=== PATIENT | female | born 1995 | race Caucasian/White ===

== ENCOUNTER → 2016-03-19 | Outpatient (CLI) | payer OTHER ==
[2016-03-19 19:08] LABS: CH 32.2; CHCM 35.4; HCT 40.2 % (34.0-46.0); HDW 2.45; HGB 13.7 gm/dL (11.4-16.0); MCHC 33.9 g/dL (31.0-37.0); MCV 91.2 fL (80.0-100.0); Mean Platelet Volume 9.6; RBC 4.41 m/uL (3.80-5.40); RDW 12.4 % (11.5-15.5); WBC 13.4 k/uL (4.0-11.0)
[2016-03-19 19:13] LABS: Glucose 85 mg/dL (74-99); Non-African American GFR(MDRD) >60 (>60 ml/min/1.73 sqM)
[2016-03-19 19:45] LABS: Hepatitis B Surface Ag Index 0.06
--- NOTE | 2016-03-20 07:52 | US ---
EXAMINATION TYPE: US OB <= 14 wk fetus DATE OF EXAM: 03/19/2016 6:11 PM COMPARISON: No previous CLINICAL HISTORY: Z36 Confirm Dates. 1 EXAM PERFORMED: Transabdominal (TA) EXAM MEASUREMENTS: GESTATIONAL AGE / DATING Physician Established: Not established yet Dates by LMP: (11 weeks/0 days) EDC: 10/08/2016 Dates by First Scan: No previous Dates by Current Scan for: (10 weeks/4 days) EDC: 10/11/2016 MATERNAL ANATOMY Uterus: 12.9 x 5.6 x 6.2cm Right Ovary: 2.9 x 1.8 x 1.8cm Left Ovary: 2.8 x 1.4 x 1.2cm Post CDS / Adnexa: wnl Presence of free fluid: no Presence of corpus luteal cyst: not seen at this time Presence of subchorionic bleed: no GESTATION / SURVEY CRL: 3.7cm (10 weeks/4 days) Yolk Sac (normal less than 6mm): 5.1mm Heart Rate: 159 bpm Rhythm: Normal IUP: Viable IUP Nuchal Translucency 10-14wks (normal less than 3mm): 1.2mm Date of LMP: 01/02/16 Beta HcG (if available): Not available at time of exam IMPRESSION: Viable single IUP measuring 10 weeks 4 days with a heart rate of 159bpm and an estimate d delivery date of 10/11/2016.
[2016-03-22 06:03] LABS: HIV-1/HIV-2 Ab Screen NONREAC (NON REAC)
== END | disposition home or self-care (01) ==
LOC: RADUSMAIN 17:48
PROVIDERS: ATTEND Obstetrics & Gynecology
DX: Z36 Encounter for antenatal screening of mother (principal); Z34.01 Encounter for supervision of normal first pregnancy, first trimester; O26.811 Pregnancy related exhaustion and fatigue, first trimester; Z3A.10 10 weeks gestation of pregnancy
CPT/HCPCS: 76801; 76813; 82565; 82947; 85027; 86762; 86780; 86850; 86900; 86901; 87340; 87389

== ENCOUNTER → 2016-05-14 | Outpatient (CLI) | payer OTHER ==
--- NOTE | 2016-05-14 17:04 | US ---
EXAMINATION TYPE: US OB anatomy transabd DATE OF EXAM: 05/14/2016 3:30 PM COMPARISON: NONE HISTORY: O36.62X0 Large for dates 2nd Trimester TECHNIQUE: OBTA EXAM MEASUREMENTS: GESTATIONAL AGE / DATING Physician Established: (19 weeks/0 days) EDC: 10/08/2016 Dates by LMP: (19 weeks/0 days) EDC: 10/08/2016 Dates by First Scan: (18 weeks/4 days) EDC: 10/11/2016 Dates by Current Scan for: (18 weeks/6 days) EDC: 10/09/2016 SURVEY IUP: Single PLACENTA: Anterior PREVIA: No previa CHERELLE: 17.0 cm CERVICAL LENGTH (transabdominal: norm > 3.0cm): 3.1 cm CERVICAL LENGTH (transvaginal: norm> 2.5cm): 3.1 cm (Supplemental transvaginal imaging performed to verify cervical length.) BIOMETRY PRESENTATION: Vertex LIE: Oblique BPD: 4.4 cm 19 weeks / 1 days HC: 15.8 cm 18 weeks / 5 days AC: 13.5 cm 19 weeks / 0 days FL: 2.9 cm 19 weeks / 0 days ESTIMATED WEIGHT IN GRAMS: 265 grams ESTIMATED WEIGHT IN LBS/OZS: 0 lbs. 9 oz. WEIGHT PERCENTAGE BASED ON ESTABLISHED DATE: 42 % HC/AC: 1.2 FL/AC: 22 HEART RATE: tech oversight, cardiac motion identified ANATOMY SEEN (within normal limits): * Lateral Vent (< 1 cm) 0.7 cm * Cisterna Magna (< 1.1 cm) 0.4 cm * Nuchal Fold (< 0.6 cm) 0.5 cm * Cerebellum (varies with age) 2.0 cm Choroid Plexus (bilateral) Midline Falx Cavus Septi Pellucidi Four Chamber Heart Outflow tracts: LVOT/RVOT Stomach Situs Nose / Lips Diaphragm Kidneys (bilateral) Bladder Cord Insert Three Vessel Cord Longitudinal Spine Transverse Spine Arms (bilateral) Legs (bilateral) Grwoth congruent with gestational age. Technologist oversight; heart rate not document; cardiac mot ion noted. IMPRESSION: TRIANA FETUS PRESENT IN A VERTEX LIE WITH A GESTATIONAL AGE OF 18 WEEKS 6 DAYS +/- 12 DAYS. ESTIMA FIDENCIO DATE OF CONFINEMENT BASED ON THIS EXAMINATION IS 10/09/2016
== END | disposition home or self-care (01) ==
LOC: RADUSWWP 13:54
PROVIDERS: ATTEND Obstetrics & Gynecology
DX: O36.62X0 Maternal care for excessive fetal growth, second trimester, not applicable or unspecified (principal); Z3A.18 18 weeks gestation of pregnancy
CPT/HCPCS: 76811; 76817

== ENCOUNTER → 2016-07-29 | Outpatient (CLI) | payer OTHER ==
[2016-07-29 17:52] LABS: CH 32.8; CHCM 34.3; HCT 33.7 % (34.0-46.0); HGB 11.1 gm/dL (11.4-16.0); MCH 31.8 pg (25.0-35.0); MCV 96.3 fL (80.0-100.0); Mean Platelet Volume 9.8; RBC 3.49 m/uL (3.80-5.40); RDW 13.8 % (11.5-15.5); WBC 9.8 k/uL (4.0-11.0)
== END | disposition home or self-care (01) ==
LOC: LABWHC1 15:29
PROVIDERS: ATTEND Obstetrics & Gynecology
DX: Z34.02 Encounter for supervision of normal first pregnancy, second trimester (principal); Z3A.00 Weeks of gestation of pregnancy not specified
CPT/HCPCS: 36415; 82950; 85027

== ENCOUNTER → 2016-08-10 | Outpatient (CLI) | payer OTHER | END | disposition home or self-care (01) | LOC: LABWHC1 08:15 | PROVIDERS: ATTEND Obstetrics & Gynecology | DX: O24.419 Gestational diabetes mellitus in pregnancy, unspecified control (principal); Z3A.00 Weeks of gestation of pregnancy not specified | CPT/HCPCS: 36415; 82951; 82952 ==

== ENCOUNTER → 2016-08-26 | Outpatient (CLI) | payer OTHER ==
[2016-08-26 11:55] LABS: Glucose 3 Hour, Gest 120 mg/dL
== END | disposition home or self-care (01) ==
LOC: LABWHC1 08:06
PROVIDERS: ATTEND Obstetrics & Gynecology
DX: O24.419 Gestational diabetes mellitus in pregnancy, unspecified control (principal); Z3A.00 Weeks of gestation of pregnancy not specified
CPT/HCPCS: 36415; 82951; 82952

== ENCOUNTER 2016-09-04 23:15 | Inpatient (IN) | payer OTHER ==
[2016-09-05] MEDS ORDERED: LACTATED RINGERS 1,000 ML IV SCH (00:15)
[2016-09-05] MEDS ORDERED: LIDOCAINE 1% (PF) 10 MG/ML (30 ML SDV) SQ PRN (00:32)
[2016-09-05] MEDS ORDERED: OXYTOCIN 10 UNIT/ML 1 ML VIAL IM PRN (00:32)
[2016-09-05] MEDS ORDERED: CARBOPROST TROMETHAMINE 250 MCG/ML 1 ML AMP IM PRN (00:32)
[2016-09-05] MEDS ORDERED: METHYLERGONOVINE 0.2 MG/ML 1 ML AMP IM PRN (00:32)
[2016-09-05] MEDS ORDERED: AMPICILLIN 2,000 MG in SODIUM CHLORIDE 0.9% 100 ML IVPB STA (00:32)
[2016-09-05] MEDS ORDERED: TERBUTALINE 1 MG/ML VIAL SQ PRN (00:32)
[2016-09-05 00:57] LABS: Basophils % (A) 0 %; CH 33.2; CHCM 35.8; Eosinophils # (A) 0.1 k/uL (0-0.7); Eosinophils % (A) 1 %; HCT 32.7 % (34.0-46.0); HDW 2.89; HGB 11.5 gm/dL (11.4-16.0); Large Platelets Flag Slight; Luc # (Auto) 0.23; Luc % (Auto) 1; Lymphocytes # (A) 3.1 k/uL (1.0-4.8); Lymphocytes % (A) 19 %; MCH 32.9 pg (25.0-35.0); MCHC 35.2 g/dL (31.0-37.0); MCV 93.2 fL (80.0-100.0); Mean Platelet Volume 11.5; Monocytes # (A) 0.7 k/uL (0-1.0); Monocytes % (A) 4 %; Neutrophils # (A) 12.4 k/uL (1.3-7.7); Neutrophils % (A) 75 %; RBC 3.51 m/uL (3.80-5.40); RDW 14.5 % (11.5-15.5); WBC 16.7 k/uL (4.0-11.0); WBC (Perox) 16.32
[2016-09-05 01:21] LABS: Manual Review Performed
[2016-09-05] MEDS: LACTATED RINGERS 1,000 ML IV SCH ×3 (01:39→09:54)
--- NOTE | 2016-09-05 01:41 | P.HPOB ---
History of Present Illness H&P Date: 09/05/16 Chief Complaint: Contractions This patient is a pleasant 20-year-old 1 para 0 female estimated date of confinement 10/08/2016 estimated gestational age 35 weeks and 1 day who presents to labor and delivery with complaints of regular painful contractions. Patient's care has been complicated by low maternal weight gain and she did have a positive chlamydia in the first trimester with a negative test of cure. Patient's cervix on Tuesday was closed and thick and is now 2-3 cm dilated 50% effaced consistent with labor. Review of Systems Constitutional: Denies chills, Denies fever Ears, nose, mouth and throat: Denies headache, Denies sore throat Cardiovascular: Denies chest pain, Denies shortness of breath Respiratory: Denies cough Gastrointestinal: Reports heartburn Genitourinary: Reports Menstruation: Reports amenorrhea Musculoskeletal: Denies myalgias Integumentary: Denies pruritus, Denies rash Past Medical History Past Medical History: Asthma History of Any Multi-Drug Resistant Organisms: None Reported Past Surgical History: Adenoidectomy, Tonsillectomy Past Anesthesia/Blood Transfusion Reactions: No Reported Reaction Past Psychological History: Depression Smoking Status: Current every day smoker Past Alcohol Use History: None Reported Past Drug Use History: None Reported Medications and Allergies Home Medications Medication Instructions Recorded Confirmed Type Pnv No.95/Ferrous Fum/Folic AC 1 tab PO DAILY 09/04/16 09/04/16 History [ Multivitamin Tablet] Allergies Allergy/AdvReac Type Severity Reaction Status Date / Time No Known Allergies Allergy Verified 09/04/16 23:22 Exam - Vital Signs Vital signs: Intake and Output 09/04/16 09/04/16 09/05/16 14:59 22:59 06:59 Other: Weight 47.627 kg Patient Weight 09/05/16 06:59 Weight 47.627 kg - OBG Physical Exam Abdomen: bowel sounds normal, no diffuse tenderness, no bruit present, no guarding noted, no hepatomegaly, no splenomegaly, no mass Vulva: both: normal Vagina: normal moisture, no discharge Cervix: Cervix is 2-3 cm dilated 50% effaced -1 station. Uterus: enlarged (Fundal height is 34 cm) Results Patient's blood type is A positive, rubella immune, RPR is nonreactive, hepatitis B is negative, HIV is negative, group B strep is pending. She had a positive Chlamydia with a negative test of cure. Call was 163 with a normal three-hour gtt. Ultrasounds have been normal. Result Diagrams: 09/05/16 00:18 Abnormal Lab Results - Last 24 Hours (Table) 09/05/16 Range/Units 00:18 WBC 16.7 H (4.0-11.0) k/uL RBC 3.51 L (3.80-5.40) m/uL Hct 32.7 L (34.0-46.0) % Plt Count 134 L (150-450) k/uL Neutrophils # 12.4 H (1.3-7.7) k/uL Assessment and Plan (1) labor in third trimester Narrative/Plan: This is a pleasant 20-year-old 1 para 0 female estimated gestational age 35 and one sevenths weeks gestation in active labor. Patient is unknown group B strep status and therefore will be given IV antibiotics. Anticipate vaginal delivery. Status: Acute
--- NOTE | 2016-09-05 01:43 | P.MSEPDOC ---
Presenting Problems - Arrival Data Date of Arrival on Unit: 09/04/16 Time of Arrival on Unit: 23:15 Mode of Transport: Portable - Complaint OB-Reason for Admission/Chief Complaint: Possible Onset of Labor, Pain Comment: pt presents to tr with c/o "constant pain" since this evening. denies any bleeding or leaking. Medical History - Information : 1 Para: 0 Term: 0 : 0 Abortions: Spontaneous or Elective: 0 Number of Living Children: 0 - Gestational Age Expected Date of Delivery: 10/08/16 Gestational Age by ULISES (wks/days): 35 Weeks and 2 Days - History Complications: Smoker Medical Screen Scoring (Pre) - Cervical Exam Dilation: 1-3 cm = 1 Membranes: Intact - Uterine Contractions Frequency: < 36 weeks = 6 Duration: > 40 seconds = 2 Intensity: N/A - Maternal Vital Signs Maternal Temperature: N/A Maternal Blood Pressure: N/A Signs of Preeclampsia: N/A Maternal Respirations: N/A - Maternal Trauma Maternal Trauma: N/A - Assessment Baseline FHR: 130 Heart Rate - NICHD Category: Category II (Indeterminate) = 3 NST: Non-reactive = 3 - Total Score Total Score (Pre): 15 - Level of Risk Level of Risk: High (10+) Physician Notification (Pre) - Physician Notified Physician Notified Date: 09/04/16 Physician Notified Time: 23:32 Physician/Practitioner Notifed:: Dr Baugh - Notification Comment Comment: order to recheck cervix after 1 hour, orally hydrate. if pts cervix is unchanged, fhts are reactive and pain is more controlled, pt may be d/c'd home. otherwise call with any needs or changes. Physician Notification (Post) - Physician Notified Physician Notified Date: 09/05/16 Physician Notified Time: 00:30 Physician/Practitioner Notified:: Dr Baugh - Notification Comment Comment: admit, continue with u/s, he'll be in shortly Disposition - Disposition OB Disposition: Admit I agree with the RN Medical Screening Exam: Yes Risk & Benefit of care provided described in d/c instruction: Yes Diagnosis: LABOR WITH DELIVERY, UNSP TRIMESTER, FETUS 1
[2016-09-05] MEDS ORDERED: BUPIVACAINE (PF) 0.25% 30 ML VIAL ONE (01:45)
[2016-09-05] MEDS ORDERED: SODIUM CHLORIDE 0.9% 100 ML BAG ONE (01:45)
[2016-09-05] MEDS ORDERED: fentaNYL (PF) 50 MCG/ML 5 ML AMP ONE (01:45)
--- NOTE | 2016-09-05 02:04 | US ---
EXAM: US After First Trimester, Transabdominal CLINICAL HISTORY: Reason: rule out abruption TECHNIQUE: Real-time transabdominal obstetrical ultrasound of the maternal pelvis and a second or third trimester with image documentation. COMPARISON: 05/14/16. FINDINGS: Fetus: Single IUP Heart rate: 132 bpm Presentation: Vertex, longitudinal lie. Placenta: Anterior placenta with no evidence of previa or abruption. Amniotic fluid: Unremarkable. 14.9-cm. Anatomy: Intracranial/face anatomy not seen. Spinal anatomy not seen. Abdominal anatomy not seen. Extremities not seen. Four-chamber heart not seen. Umbilical cord not seen. BIOMETRICS Gestational age by US: 33 weeks and 6 days EFW: 2358 grams BPD: 8.5 cm 34 weeks / 3 days HC: 31.1 cm 34 weeks / 5 days AC: 30.2 cm 34 weeks / 1 days FL: 6.6 cm 33 weeks / 5 days HC/AC: 1.03 0.95-1.11 FL/AC: 21.71 20.00-24.00 MATERNAL: Uterus: Unremarkable. No myometrial mass. Cervix: Approximately 3.2 cm and closed Free fluid: No free fluid. IMPRESSION: No acute findings. Single live IUP of 33 weeks and 6 days. Anterior placenta with no evidence of previa or abruption. Size consistent with dates and prior study.
[2016-09-05] MEDS ORDERED: BUPIVACAINE (PF) 0.25% 25 ML, fentaNYL (PF) 200 MCG in SODIUM CHLORIDE 0.9% 71 ML EPIDURAL ONE (02:08)
[2016-09-05] MEDS: AMPICILLIN 1,000 MG in SODIUM CHLORIDE 0.9% 50 ML IVPB SCH ×2 (04:55→11:09)
[2016-09-05] MEDS ORDERED: OXYTOCIN 20 UNITS/1000 ML NS 1,000 ML IV SCH ×2 (06:15→09:30)
[2016-09-05] MEDS ORDERED: BISACODYL 10 MG SUPP RECTAL PRN (09:28)
[2016-09-05] MEDS ORDERED: SIMETHICONE 80 MG CHEWABLE PO PRN (09:28)
[2016-09-05] MEDS ORDERED: diphenhydrAMINE 25 MG CAP PO PRN (09:28)
[2016-09-05] MEDS ORDERED: WITCH HAZEL 1 EACH MED..PAD TOPICAL PRN (09:28)
[2016-09-05] MEDS ORDERED: diphenhydrAMINE 50 MG/ML 1 ML VIAL IVP PRN (09:28)
[2016-09-05] MEDS ORDERED: ACETAMINOPHEN TAB 325 MG TAB PO PRN (09:28)
[2016-09-05] MEDS ORDERED: BENZOCAINE/MENTHOL SPRAY 1 GM/SPRAY AEROSOL TOPICAL PRN (09:28)
[2016-09-05] MEDS ORDERED: ZOLPIDEM 5 MG TAB PO PRN (09:28)
[2016-09-05] MEDS ORDERED: LANOLIN CREAM 5 GM TUBE TOPICAL PRN (09:28)
[2016-09-05] MEDS ORDERED: HYDROCORTISONE 2.5% RECTAL CREAM 30 GM TUBE RECTAL PRN (09:28)
--- NOTE | 2016-09-05 09:33 | P.PROBDLV ---
Vaginal Delivery Note - . Vaginal Delivery Note: Normal vaginal delivery viable male infant Apgars 8 and 9 delivery time was 0909 hrs. Please see dictated H&P for intimate details of this patient's admission. Brief summary this is a pleasant 20-year-old 1 para 0 female 35 and one sevenths weeks gestation admitted to labor and delivery with regular painful contractions. Patient was having contractions every 1-2 minutes and abdominal discomfort I did order a ultrasound which showed no evidence of an abruption and normal amniotic fluid index. Patient was having some variable decelerations therefore was admitted and found to be in early labor. Patient has artificial rupture membranes for clear fluid. Due to unknown group B strep status she was started on IV antibiotics. Patient received an epidural for pain control. When she was approximately 4 cm dilated she was noted to have some dark bloody fluid. heart tones were reassuring at this time in labor did progress quickly at this time as well. Patient not to complete and pushes for approximately 18 minutes. Posterior perineum was infiltrated 1% lidocaine and a midline episiotomy is made. We then have controlled delivery of the infant's head over the perineum. Bloody fluid is noted at this time as well. Mouth and nares are bulb suctioned there is no evidence of nuchal cord. With gentle downward traction we then have delivery the anterior and posterior shoulder and rest this 's body. This is a vigorous viable male Apgars are 8 and 9 delivery time was 0909 hrs. Infant has spontaneous respirations and good cry. After delivery of the infant the umbilical cords doubly clamped and cut infant is late on the mother's abdomen. Placenta is then spontaneously delivered intact and there is approximately 45 cm dark red clot and appears to be with a marginal placental abruption. The rest of the placenta appears normal. Estimated blood loss is 100 mL. Inspection of perineum shows a second-degree laceration was repaired with 3-0 Vicryl usual fashion good reapproximation is noted. All counts are correct 3. There are no complications. will be watched and then taken to special care due to gestational age. Mother is stable in the delivery room.
[2016-09-05] MEDS: IBUPROFEN 600 MG TAB PO PRN ×2 (11:52→22:28)
[2016-09-05] MEDS: SENNOSIDES-DOCUSATE SODIUM 1 EACH TAB PO SCH (19:48)
[2016-09-05] MEDS: Acetaminophen-Codeine 300-30mg TAB PO PRN (19:53)
[2016-09-05 19:55] VITALS: RESP 16
--- NOTE | 2016-09-06 06:23 | P.PNOBGVD ---
Subjective - Subjective Patient reports: Reports appetite normal, Reports voiding normally, Reports pain well controlled, Reports ambulating normally : doing well Objective - Latest Vital Signs Latest vital signs: Vital Signs Temp Pulse Resp BP Pulse Ox 09/05/16 23:49 98.4 F 58 L 16 97/53 98 09/05/16 19:54 97.9 F 81 16 94/47 97 09/05/16 16:00 98.4 F 69 18 93/53 98 09/05/16 11:51 98.7 F 72 16 101/51 09/05/16 11:25 72 16 101/51 09/05/16 10:55 99.2 F 78 14 109/59 09/05/16 10:25 98.2 F 74 14 108/57 09/05/16 10:10 81 14 120/63 09/05/16 09:55 97.7 F 88 16 114/56 09/05/16 09:40 85 16 110/62 09/05/16 09:25 97.7 F 71 16 121/62 Intake and Output 09/05/16 09/05/16 09/06/16 14:59 22:59 06:59 Intake Total 59.15 500 Output Total 900 Balance -840.85 500 Intake: Intake, IV Titration 59.15 Amount Ampicillin 1,000 mg In 50 Sodium Chloride 0.9% 50 ml @ 100 mls/hr IVPB Q4H [place] Rx#:[id number] Oxytocin 20 Units/1000 ml 9.15 Ns 1,000 ml @ 1 MILLIUNIT/MIN 3 mls/hr IV .Q24H [place] Rx#:[id number] Oral 500 Output: Urine 800 Emesis 100 Other: # Voids 1 - Exam Lungs: bilateral: normal Chest: Normal S1, Normal S2 Extremities: Present: normal Abdomen: Present: normal appearance, soft Uterus: Present: normal, firm Assessment and Plan (1) labor in third trimester Narrative/Plan: day #1. Patient is resting without new complaints. Vital signs are stable and she is afebrile. Uterus is firm nontender she's having normal lochia. My impression is that this is a normal course. Plan is to continue routine care and discharge home tomorrow. Current Visit: Yes Status: Acute Code(s): O60.03 - LABOR WITHOUT DELIVERY, THIRD TRIMESTER SNOMED Code(s): 9842401
[2016-09-06] MEDS: SENNOSIDES-DOCUSATE SODIUM 1 EACH TAB PO SCH ×3 (08:34→20:46)
[2016-09-06] MEDS: Acetaminophen-Codeine 300-30mg TAB PO PRN ×2 (08:35→20:43)
[2016-09-06] MEDS: IBUPROFEN 600 MG TAB PO PRN ×2 (14:34→23:41)
--- NOTE | 2016-09-07 06:19 | P.PNOBGVD ---
Subjective - Subjective Patient reports: Reports appetite normal, Reports voiding normally, Reports pain well controlled, Reports ambulating normally : doing well Objective - Latest Vital Signs Latest vital signs: Vital Signs Temp Pulse Resp BP Pulse Ox 09/06/16 23:47 98 F 55 L 16 108/60 99 09/06/16 16:00 97.9 F 71 16 102/56 09/06/16 09:03 98.1 F 81 16 107/61 Intake and Output 09/06/16 09/06/16 09/07/16 14:59 22:59 06:59 Other: # Voids 2 - Exam Lungs: bilateral: normal Chest: Normal S1, Normal S2 Extremities: Present: normal Abdomen: Present: normal appearance, soft Uterus: Present: normal, firm Assessment and Plan (1) labor in third trimester Narrative/Plan: day #2. Patient is resting without complaints. Vital signs are stable and she is afebrile. Uterus is firm nontender she's having normal lochia. My impression is normal course. Plan is to continue routine care discharge home today. Current Visit: Yes Status: Acute Code(s): O60.03 - LABOR WITHOUT DELIVERY, THIRD TRIMESTER SNOMED Code(s): 0581488
--- NOTE | 2016-09-07 06:20 | P.DS ---
Providers Date of admission: 09/05/16 00:32 Expected date of discharge: 09/07/16 Attending physician: Darryn Baugh Primary care physician: Darryn Baugh - Discharge Diagnosis(es) (1) labor in third trimester Current Visit: Yes Status: Acute Hospital Course: Please see dictated H&P for intimate details of this patient's admission. Brief summary this pleasant 20-year-old 1 para 0 female 35 and one sevenths weeks gestation admitted to labor and delivery with active labor. Patient went on to have a vaginal delivery viable male infant. Of note she did have a partial abruption noted at the time of delivery. day #2 patient's felt be stable for discharge home follow up with me in 6 weeks. Procedures: Normal spontaneous vaginal delivery Patient Condition at Discharge: Good Plan - Discharge Summary New Discharge Prescriptions: New Acetaminophen-Codeine 300-30mg [Tylenol w/codeine #3] 1 - 2 each PO Q4HR PRN #30 tab PRN Reason: Mild Pain exceeding Tylenol Ibuprofen [Motrin] 600 mg PO Q6HR PRN #40 tab PRN Reason: Mild Pain Or Fever >= 100.5 No Action Pnv No.95/Ferrous Fum/Folic AC [ Multivitamin Tablet] 1 tab PO DAILY Discharge Medication List Pnv No.95/Ferrous Fum/Folic AC [ Multivitamin Tablet] 1 tab PO DAILY [History] Acetaminophen-Codeine 300-30mg [Tylenol w/codeine #3] 1 - 2 each PO Q4HR PRN # 30 tab 09/07/16 [Rx] Ibuprofen [Motrin] 600 mg PO Q6HR PRN #40 tab 09/07/16 [Rx] Follow up Appointment(s)/Referral(s): Darryn Baugh MD [Primary Care Provider] - 10/21/16 9:45 am Patient Instructions/Handouts: Vaginal Delivery (DC) Activity/Diet/Wound Care/Special Instructions: No intercourse or anything per vagina for 6 weeks. Please call if any fever, chills, excessive vaginal bleeding, and/or abdominal pain. Discharge Disposition: HOME SELF-CARE
[2016-09-07] MEDS: IBUPROFEN 600 MG TAB PO PRN (08:20)
[2016-09-07] MEDS: SENNOSIDES-DOCUSATE SODIUM 1 EACH TAB PO SCH (08:21)
[2016-09-07 09:23] VITALS: PULSE 62
[2016-09-07] MEDS: Acetaminophen-Codeine 300-30mg TAB PO PRN (13:54)
[2016-09-07 18:00] VITALS: BP 116/62; TEMP 98.4
== END 2016-09-07 18:30 | disposition home or self-care (01) | DRG 774 ==
LOC: FBPOP 23:15 → 4FBP 09-05 00:32
PROVIDERS: ADMIT Obstetrics & Gynecology; ATTEND Obstetrics & Gynecology
PROC: 10E0XZZ Delivery of Products of Conception, External Approach (ICD-10-PCS; principal; 2016-09-05)
PROC: 0KQM0ZZ Repair Perineum Muscle, Open Approach (ICD-10-PCS; 2016-09-05)
PROC: 0W8NXZZ Division of Female Perineum, External Approach (ICD-10-PCS; 2016-09-05)
DX: O60.14X0 Preterm labor third trimester with preterm delivery third trimester, not applicable or unspecified (principal); O45.93 Premature separation of placenta, unspecified, third trimester; Z37.0 Single live birth; O70.1 Second degree perineal laceration during delivery; O99.334 Smoking (tobacco) complicating childbirth; O99.344 Other mental disorders complicating childbirth; O99.52 Diseases of the respiratory system complicating childbirth; F32.9 Major depressive disorder, single episode, unspecified; J45.909 Unspecified asthma, uncomplicated; O76 Abnormality in fetal heart rate and rhythm complicating labor and delivery; Z3A.35 35 weeks gestation of pregnancy
CPT/HCPCS: 59025; 76805; 85025; 88307; 96360; 99213

== ENCOUNTER 2018-07-07 15:40 | Emergency (ER) | payer OTHER ==
[2018-07-07 15:50] VITALS: TEMP 97.8
[2018-07-07] MEDS ORDERED: SODIUM CHLORIDE 0.9% 1,000 ML IV ONE (16:46)
[2018-07-07] MEDS ORDERED: SODIUM CHLORIDE 0.9% 1,000 ML IV SCH (17:00)
--- NOTE | 2018-07-07 17:31 | ED ---
Abdominal Pain HPI - General Chief Complaint: Abdominal Pain Stated Complaint: 15 weks preg, vomiting Time Seen by Provider: 07/07/18 16:20 Source: patient, RN notes reviewed, old records reviewed Mode of arrival: ambulatory Limitations: no limitations - History of Present Illness Initial Comments: Patient 22 year old female with complaints of nausea and vomitig or one week. She states she is currently 15 weeks . Denies any vaginal bleeding or discharge. She denies any diarrhea. Patient states she's had some upper abdominal pain associated with this. She denies any associated chest pain. Denies any vaginal bleeding or discharge or painful urination.Patient denies any recent fever, chills, shortness of breath, chest pain, back pain, abdominal pain, , numbness or tingling, dysuria or hematuria, constipation or diarrhea, headaches or visual changes, or any other current symptoms - Related Data Home Medications Medication Instructions Recorded Confirmed Pnv No.95/Ferrous Fum/Folic AC 1 tab PO DAILY 09/04/16 09/04/16 [ Multivitamin Tablet] Previous Rx's Medication Instructions Recorded Acetaminophen-Codeine 300-30mg 1 - 2 each PO Q4HR PRN #30 tab 09/07/16 [Tylenol w/codeine #3] Ibuprofen [Motrin] 600 mg PO Q6HR PRN #40 tab 09/07/16 Metoclopramide [Reglan] 5 mg PO ACHS #23 tab 07/07/18 Allergies Allergy/AdvReac Type Severity Reaction Status Date / Time No Known Allergies Allergy Verified 07/07/18 15:50 Review of Systems ROS Statement: Those systems with pertinent positive or pertinent negative responses have been documented in the HPI. ROS Other: All systems not noted in ROS Statement are negative. Past Medical History Past Medical History: Asthma History of Any Multi-Drug Resistant Organisms: None Reported Past Surgical History: Adenoidectomy, Tonsillectomy Past Anesthesia/Blood Transfusion Reactions: No Reported Reaction Past Psychological History: Depression Smoking Status: Current every day smoker Past Alcohol Use History: None Reported Past Drug Use History: None Reported - Past Family History Mother Family Medical History: No Reported History General Exam - General Exam Comments Initial Comments: 22-year-old female. Alert and oriented. No distress. Limitations: no limitations General appearance: alert, in no apparent distress Head exam: Present: atraumatic, normocephalic, normal inspection Eye exam: Present: normal appearance, PERRL, EOMI. Absent: scleral icterus, conjunctival injection, periorbital swelling ENT exam: Present: normal exam, mucous membranes moist Neck exam: Present: normal inspection. Absent: tenderness, meningismus, lymphadenopathy Respiratory exam: Present: normal lung sounds bilaterally. Absent: respiratory distress, wheezes, rales, rhonchi, stridor Cardiovascular Exam: Present: regular rate, normal rhythm, normal heart sounds. Absent: systolic murmur, diastolic murmur, rubs, gallop, clicks GI/Abdominal exam: Present: soft, normal bowel sounds. Absent: distended, tenderness, guarding, rebound, rigid Extremities exam: Present: normal inspection, full ROM, normal capillary refill. Absent: tenderness, pedal edema, joint swelling, calf tenderness Back exam: Present: normal inspection Neurological exam: Present: alert, oriented X3, CN II-XII intact Psychiatric exam: Present: normal affect, normal mood Skin exam: Present: warm, dry, intact, normal color. Absent: rash Course Vital Signs 07/07/18 07/07/18 07/07/18 15:48 18:15 20:00 Temperature 97.8 F Pulse Rate 107 H 75 74 Respiratory 18 16 18 Rate Blood Pressure 101/65 103/56 97/57 O2 Sat by Pulse 98 98 99 Oximetry Medical Decision Making - Medical Decision Making 22-year-old female, G2, P2 1. 15 weeks , presents today with nausea and vomiting for the past week. She admits to some upper abdominal pain associated with this. She has no significant tenderness on exam. Denies any vaginal bleeding or discharge. heart tones were also stated 1 40 bpm. Patient has been given IV fluids. Patient is dehydrated with 3+ ketones. She was given 2 L bolus. Patient advised likely gastroenteritis. Mother relates that she's also on her menstrual stress due to family situations. The could be causing her stomach pain and anxiety. Patient will be discharged at this time with p rescription for Reglan and advised to follow-up with her PCP. Discussed frequent small meals and increasing hydration status. - Lab Data Result diagrams: 07/07/18 18:00 07/07/18 18:00 Lab Results 07/07/18 07/07/18 07/07/18 Range/Units 18:00 18:00 18:00 WBC 12.2 H (3.8-10.6) k/uL RBC 4.02 (3.80-5.40) m/uL Hgb 12.7 (11.4-16.0) gm/dL Hct 36.5 (34.0-46.0) % MCV 90.8 (80.0-100.0) fL MCH 31.5 (25.0-35.0) pg MCHC 34.7 (31.0-37.0) g/dL RDW 13.8 (11.5-15.5) % Plt Count 180 (150-450) k/uL Neutrophils % 73 % Lymphocytes % 21 % Monocytes % 3 % Eosinophils % 3 % Basophils % 0 % Neutrophils # 8.9 H (1.3-7.7) k/uL Lymphocytes # 2.5 (1.0-4.8) k/uL Monocytes # 0.4 (0-1.0) k/uL Eosinophils # 0.3 (0-0.7) k/uL Basophils # 0.0 (0-0.2) k/uL Sodium 135 L (137-145) mmol/L Potassium 4.0 (3.5-5.1) mmol/L Chloride 106 (98-107) mmol/L Carbon Dioxide 19 L (22-30) mmol/L Anion Gap 10 mmol/L BUN 6 L (7-17) mg/dL Creatinine 0.28 L (0.52-1.04) mg/dL Est GFR (CKD-EPI)AfAm >90 (>60 ml/min/1.73 sqM) Est GFR (CKD-EPI)NonAf >90 (>60 ml/min/1.73 sqM) Glucose 76 (74-99) mg/dL Calcium 9.6 (8.4-10.2) mg/dL Total Bilirubin 0.6 (0.2-1.3) mg/dL AST 21 (14-36) U/L ALT 16 (9-52) U/L Alkaline Phosphatase 48 (38-126) U/L Total Protein 6.9 (6.3-8.2) g/dL Albumin 4.1 (3.5-5.0) g/dL Urine Color Yellow Urine Appearance Cloudy H (Clear) Urine pH 6.0 (5.0-8.0) Ur Specific [place] 1.024 (1.001-1.035) Urine Protein 1+ H (Negative) Urine Glucose (UA) Negative (Negative) Urine Ketones 3+ H (Negative) Urine Blood Negative (Negative) Urine Nitrite Negative (Negative) Urine Bilirubin Negative (Negative) Urine Urobilinogen 2.0 (<2.0) mg/dL Ur Leukocyte Esterase Moderate H (Negative) Urine RBC 3 (0-5) /hpf Urine WBC 19 H (0-5) /hpf Ur Squamous Epith Cells 12 H (0-4) /hpf Urine Mucus Many H (None) /hpf Disposition Clinical Impression: Nausea/vomiting in Disposition: HOME SELF-CARE Condition: Good Instructions (If sedation given, give patient instructions): Acute Nausea and Vomiting (ED) Additional Instructions: Patient is advised to take nausea medicine and follow-up with your WEBMASTER and primary care doctor. Clear liquid and bland diet. Rest, remain hydrated. Prescriptions: Metoclopramide [Reglan] 5 mg PO ACHS #23 tab Is patient prescribed a controlled substance at d/c from ED?: No Referrals: Raj Cortes MD [Primary Care Provider] - 1-2 days Time of Disposition: 19:28
[2018-07-07 18:12] LABS: Basophils % (A) 0 %; Eosinophils # (A) 0.3 k/uL (0-0.7); Eosinophils % (A) 3 %; HCT 36.5 % (34.0-46.0); HGB 12.7 gm/dL (11.4-16.0); Lymphocytes # (A) 2.5 k/uL (1.0-4.8); Lymphocytes % (A) 21 %; MCH 31.5 pg (25.0-35.0); MCHC 34.7 g/dL (31.0-37.0); MCV 90.8 fL (80.0-100.0); Mean Platelet Volume 9.2; Monocytes # (A) 0.4 k/uL (0-1.0); Monocytes % (A) 3 %; Neutrophils # (A) 8.9 k/uL (1.3-7.7); Neutrophils % (A) 73 %; Platelet Count 180 k/uL (150-450); RBC 4.02 m/uL (3.80-5.40); RDW 13.8 % (11.5-15.5); WBC 12.2 k/uL (3.8-10.6)
[2018-07-07 18:20] LABS: Sodium 135 mmol/L (137-145)
[2018-07-07 18:21] LABS: ALT 16 U/L (9-52); AST 21 U/L (14-36); Albumin 4.1 g/dL (3.5-5.0); Alkaline Phosphatase 48 U/L (38-126); Anion Gap 10 mmol/L; Blood Urea Nitrogen 6 mg/dL (7-17); Calcium 9.6 mg/dL (8.4-10.2); Carbon Dioxide 19 mmol/L (22-30); Chloride 106 mmol/L (98-107); Glucose 76 mg/dL (74-99); Total Bilirubin 0.6 mg/dL (0.2-1.3); Total Protein 6.9 g/dL (6.3-8.2)
[2018-07-07 19:22] LABS: Appearance,Urine Cloudy (Clear); Bilirubin,Urine Negative (Negative); Blood,Urine Negative (Negative); Color,Urine Yellow; Glucose,Urine (UA) Negative (Negative); Ketones,Urine 3+ (Negative); Leukocyte Esterase,Urine Moderate (Negative); Mucus,Urine Many /hpf; Nitrite,Urine Negative (Negative); Protein,Urine 1+ (Negative); RBC,Urine 3 /hpf (0-5); Specific Gravity,Urine 1.024 (1.001-1.035); Squamous Epithelial Cell,Urine 12 /hpf (0-4)
[2018-07-07 20:04] VITALS: BP 97/57; PULSE 74; RESP 18
== END 2018-07-07 20:00 | disposition home or self-care (01) ==
LOC: EC 15:40
DX: O21.9 Vomiting of pregnancy, unspecified (principal); O99.332 Smoking (tobacco) complicating pregnancy, second trimester; F17.200 Nicotine dependence, unspecified, uncomplicated; Z3A.15 15 weeks gestation of pregnancy
CPT/HCPCS: 36415; 80053; 81001; 85025; 87086; 96360; 96361; 99284

== ENCOUNTER 2018-11-29 09:41 | Outpatient (CLI) | payer OTHER ==
[2018-11-29] MEDS ORDERED: LACTATED RINGERS 1,000 ML IV SCH (10:45)
[2018-11-29] MEDS ORDERED: LACTATED RINGERS 1,000 ML IV ONE (10:45)
[2018-11-29 14:32] VITALS: BP 113/66; PULSE 92; RESP 16; TEMP 97.9
--- NOTE | 2018-12-24 10:48 | P.MSEPDOC ---
Presenting Problems - Arrival Data Date of Arrival on Unit: 11/29/18 Time of Arrival on Unit: 09:41 Mode of Transport: Ambulatory - Complaint OB-Reason for Admission/Chief Complaint: Jeremy Bleeding Comment: pt presents to triage with c/o bleeding when she woke up this moring pt wore peripad in, small amount of red blood mixed with some brown blood on peripad. pt reports some cramping for the last hour Medical History - Information : 2 Para: 1 Term: 0 : 1 Abortions: Spontaneous or Elective: 0 Number of Living Children: 1 - Gestational Age Gestational Age by ULISES (wks/days): 36 Weeks and 1 Days - History Complications: Prior Comment: Pt had 33 week abruption with last baby. vaginal delivery Review of Systems - Review of Systems Constitutional: No problems Breast: No problems ENT: No problems Cardiovascular: No problems Respiratory: No problems Gastrointestinal: No problems Genitourinary: No problems Musculoskeletal: No problems Neurological: No problems Skin: No problems Comment: [address]win, observe pt in triage and administer IV hydration, 1000ml. bolus of LR then 125ml/hr after that. per dr irwin, pt has hx of 33 week . delivery for abruption Vital Signs - Temperature Temperature: 97.9 F Temperature Source: Oral - Pulse Right Pulse Oximetery Pulse Rate: 92 - Respirations Respiratory Rate: 16 Oxygen Delivery Method: Room Air O2 Sat by Pulse Oximetry: 99 - Blood Pressure Right Arm Blood Pressure: 113/66 Blood Pressure Mean: 81 Blood Pressure Source: Automatic Cuff Medical Screen Scoring (Pre) - Cervical Exam Dilation: 1-3 cm = 1 Effacement: More than 50% = 2 Membranes: Intact - Uterine Contractions Frequency: > 5 minutes apart = 1 Duration: N/A Intensity: N/A - Maternal Vital Signs Maternal Temperature: N/A Maternal Blood Pressure: N/A Signs of Preeclampsia: N/A Maternal Respirations: N/A - Maternal Trauma Maternal Trauma: N/A, Jeremy bleeding = 5 - Assessment - Baby A Baseline FHR: 125 Heart Rate - NICHD Category: Category I (Normal) = 0 NST: Reactive Position: N/A Station: N/A - Total Score - Baby A Total Score - Baby A: 9 - Total Score - Baby B Total Score - Baby B: 9 - Total Score - Baby C Total Score - Baby C: 9 - Level of Risk - Baby A Level of Risk - Baby A: Medium (6-9) - Level of Risk - Baby B Level of Risk - Baby B: Medium (6-9) - Level of Risk - Baby C Level of Risk - Baby C: Medium (6-9) - Pain Assessment Pain Intensity: 0 Physician Notification (Pre) - Physician Notified Physician Notified Date: 11/29/18 Physician Notified Time: 10:38 Physician/Practitioner Notifed:: Dr Irwin New Order Received: Yes - Notification Comment Comment: [address]win, observe pt in triage and administer IV hydration, 1000ml. bolus of LR then 125ml/hr after that. per dr irwin, pt has hx of 33 week . delivery for abruption. 1336. Dr Irwin updated per phone no further vag bleeding except small amount on. tissue when wiping, cat 1 status, contractions continue 3-5 min but pt not. feeling. pt does feel pelvic pressure lt lower side. orders to recheck cervix and if. unchanged and bleeding not increased pt may discharge with instructions to keep. scheduled appts. ressure pt the bleeding is most likely from the vaginal exam yesterday. at office. Disposition - Disposition OB Disposition: Discharge to home, Written follow up instructions reviewed Discharge Date: 11/29/18 Discharge Time: 14:10 I agree with the RN Medical Screening Exam: Yes Risk & Benefit of care provided described in d/c instruction: Yes Diagnosis: SPOTTING COMPLICATING , THIRD TRIMESTER
== END 2018-11-29 14:10 | disposition home or self-care (01) ==
LOC: FBPOP 09:41
PROVIDERS: ATTEND Obstetrics & Gynecology
DX: O26.853 Spotting complicating pregnancy, third trimester (principal); Z3A.36 36 weeks gestation of pregnancy
CPT/HCPCS: 59025; 96360; 96361; G0463; 99213; 99215

== ENCOUNTER → 2018-12-12 | Outpatient (CLI) | payer OTHER ==
--- NOTE | 2018-12-12 08:37 | US ---
EXAMINATION TYPE: US OB limited DATE OF EXAM: 12/12/2018 COMPARISON: NONE CLINICAL HISTORY: O36.5911 Interuterine restriction. IUGR, CHERELLE only EXAM PERFORMED: Transabdominal (TA) GESTATIONAL AGE / DATING Physician Established: (38 weeks/0 days) EDC: 12/26/18 No growth performed on today?s study per ordering physician SURVEY CHERELLE: 12.0 cm Normal Ultrasound evidence of premature rupture of membranes? no HEART RATE: 143 bpm RHYTHM: Normal IMPRESSION: Limited ultrasound per physician order demonstrating an intrauterine with a he art rate of 143 bpm. Amniotic fluid index is within normal limits measured at 12.0 cm.
== END ==
LOC: RADUSMAIN 08:04
PROVIDERS: ATTEND Obstetrics & Gynecology
DX: O36.5911 Maternal care for other known or suspected poor fetal growth, first trimester, fetus 1 (principal); Z3A.00 Weeks of gestation of pregnancy not specified
CPT/HCPCS: 76815

== ENCOUNTER 2018-12-13 06:00 | Inpatient (IN) | payer OTHER ==
[2018-12-13] MEDS ORDERED: TERBUTALINE 1 MG/ML VIAL SQ PRN (06:48)
[2018-12-13] MEDS ORDERED: OXYTOCIN 10 UNIT/ML 1 ML VIAL IM PRN (06:48)
[2018-12-13] MEDS ORDERED: LIDOCAINE 0.5% (PF) 5 MG/ML (50 ML SDV) SQ PRN (06:48)
[2018-12-13] MEDS ORDERED: METHYLERGONOVINE 0.2 MG/ML 1 ML AMP IM PRN (06:48)
[2018-12-13] MEDS ORDERED: CARBOPROST TROMETHAMINE 250 MCG/ML 1 ML AMP IM PRN (06:48)
[2018-12-13 06:58] VITALS: BMI 19.9
[2018-12-13] MEDS ORDERED: OXYTOCIN 30 UNITS/500 ML NS 30 UNIT in SALINE 1 500ML.BAG IV SCH (07:00)
[2018-12-13] MEDS: LACTATED RINGERS 1,000 ML IV SCH ×3 (07:19→10:30)
[2018-12-13 07:23] LABS: Basophils # (A) 0.1 k/uL (0-0.2); Basophils % (A) 1 %; Eosinophils # (A) 0.3 k/uL (0-0.7); Eosinophils % (A) 2 %; HCT 32.5 % (34.0-46.0); HGB 11.1 gm/dL (11.4-16.0); Lymphocytes # (A) 2.4 k/uL (1.0-4.8); Lymphocytes % (A) 18 %; MCH 31.8 pg (25.0-35.0); MCHC 34.3 g/dL (31.0-37.0); MCV 92.7 fL (80.0-100.0); Mean Platelet Volume 9.9; Monocytes # (A) 0.4 k/uL (0-1.0); Monocytes % (A) 3 %; Neutrophils # (A) 9.5 k/uL (1.3-7.7); Neutrophils % (A) 74 %; Platelet Count 194 k/uL (150-450); RDW 13.3 % (11.5-15.5); WBC 12.9 k/uL (3.8-10.6)
[2018-12-13] MEDS ORDERED: BUTORPHANOL 1 MG/ML 1 ML VIAL IV PRN (08:19)
--- NOTE | 2018-12-13 08:25 | P.HPOB ---
History of Present Illness H&P Date: 12/13/18 Chief Complaint: 38 and one sevenths weeks, intrauterine growth restriction The patient is a 23-year-old 2 para 0101 admitted at 38 and one sevenths weeks as established by last menstrual period and confirmed by 19 week ultrasound. She is admitted with a diagnosis of intrauterine growth restriction diagnosed at approximately 35-36 weeks at which time the fetus was found to be growing at the 5th percentile. She has had twice weekly nonstress testing as well as weekly amniotic fluid index and S/D ratios which have all been normal and reassuring since the diagnosis. Her had been otherwise uncomplicated to that time aside from relatively poor maternal weight gain which had been discussed on multiple occasions. Group B strep status is negative. Sh haroon does carry a history of a delivery secondary to placental abruption in the past but has had no such problems during this . Obstetrical history: 2 para 0101 with a history of a 33 week vaginal delivery for abruption. Current statistics are listed in history of p resent illness. EDC of 12/26/2018 was established by last menstrual period and confirmed by 19 week ultrasound. Laboratory workup demonstrates a blood type of A+ with a negative antibody screen. Rubella status is immune. Remainder of the laboratory workup was within normal limits. One hour Glucola was normal and group B strep status is negative. Gynecologic history: Unremarkable with no apparent history of infections to include STDs. Review of Systems Review of systems is confined to history of present illness. Past Medical History Past Medical History: Asthma History of Any Multi-Drug Resistant Organisms: None Reported Past Surgical History: Adenoidectomy, Tonsillectomy Past Anesthesia/Blood Transfusion Reactions: No Reported Reaction Past Psychological History: Depression Smoking Status: Current every day smoker Past Alcohol Use History: None Reported Past Drug Use History: None Reported - Past Family History Mother Family Medical History: No Reported History Medications and Allergies Home Medications Medication Instructions Recorded Confirmed Type Pnv No.95/Ferrous Fum/Folic AC 1 tab PO DAILY 09/04/16 12/13/18 History [ Multivitamin Tablet] Allergies Allergy/AdvReac Type Severity Reaction Status Date / Time No Known Allergies Allergy Verified 12/13/18 06:47 Exam Vital Signs Temp Pulse Resp BP 12/13/18 06:46 97.6 F 86 16 109/61 Intake and Output 12/12/18 12/13/18 12/13/18 22:59 06:59 14:59 Other: Weight 46.266 kg In general, this is a well-developed for very thin white female in no acute distress. Her heart has a regular rhythm and rate without murmur. Her lungs are clear to auscultation bilaterally in all tyson. Her abdomen is gravid, nondistended, has normal active bowel sounds, is soft, nontender, and without any palpable masses aside from uterine fundus. Her extremities without any cyanosis, clubbing, or edema and are nontender to palpation bilaterally. Digital cervical examination demonstrates her cervix to be 4 cm dilated, 80-90% effaced, with the vertex in presentation at -1-2 station. Artificial rupture of membranes is carried out demonstrating clear fluid. Results Result Diagrams: 12/13/18 07:00 Abnormal Lab Results - Last 24 Hours (Table) 12/13/18 Range/Units 07:00 WBC 12.9 H (3.8-10.6) k/uL RBC 3.50 L (3.80-5.40) m/uL Hgb 11.1 L (11.4-16.0) gm/dL Hct 32.5 L (34.0-46.0) % Neutrophils # 9.5 H (1.3-7.7) k/uL Assessment and Plan (1) Term Current Visit: No Status: Acute Code(s): Z34.90 - ENCNTR FOR SUPRVSN OF NORMAL , UNSP, UNSP TRIMESTER SNOMED Code(s): 12218792 (2) Intrauterine growth retardation in Current Visit: No Status: Acute Code(s): O36.5990 - MATERN CARE FOR OTH OR SUSP POOR FETL GRTH, UNSP TRI, UNSP SNOMED Code(s): 204636153 Plan: The patient is admitted for Pitocin induction which has been started. She has undergone artificial rupture of membranes. She will have close maternal and surveillance and expectant management will be practiced. She is a good candidate for either IV or epidural analgesia, whichever she may choose.
[2018-12-13] MEDS ORDERED: fentaNYL (PF) 50 MCG/ML 5 ML AMP ONE (09:29)
[2018-12-13] MEDS ORDERED: SODIUM CHLORIDE 0.9% 100 ML BAG ONE (09:29)
[2018-12-13] MEDS ORDERED: ROPIVACAINE 5MG/ML 20ML VIAL ONE (09:29)
[2018-12-13] MEDS ORDERED: HYDROcodone/APAP 5-325MG 1 EACH TAB PO PRN (11:43)
[2018-12-13] MEDS ORDERED: WITCH HAZEL 1 EACH MED..PAD TOPICAL PRN (11:43)
[2018-12-13] MEDS ORDERED: diphenhydrAMINE 50 MG CAP PO PRN (11:43)
[2018-12-13] MEDS ORDERED: BENZOCAINE/MENTHOL SPRAY 1 GM/SPRAY AEROSOL TOPICAL PRN (11:43)
[2018-12-13] MEDS ORDERED: HYDROCORTISONE 2.5% RECTAL CREAM 30 GM TUBE RECTAL PRN (11:43)
[2018-12-13] MEDS ORDERED: diphenhydrAMINE 50 MG/ML 1 ML VIAL IVP PRN ×2 (11:43)
[2018-12-13] MEDS ORDERED: ZOLPIDEM 5 MG TAB PO PRN (11:43)
[2018-12-13] MEDS ORDERED: HYDROcodone/APAP 7.5-325MG 1 EACH TAB PO PRN (11:43)
[2018-12-13] MEDS ORDERED: diphenhydrAMINE 25 MG CAP PO PRN (11:43)
[2018-12-13] MEDS ORDERED: SIMETHICONE 80 MG CHEWABLE PO PRN (11:43)
[2018-12-13] MEDS ORDERED: OXYTOCIN 20 UNITS/1000 ML NS 1,000 ML IV SCH (11:45)
--- NOTE | 2018-12-13 11:46 | P.PROBDLV ---
Vaginal Delivery Note - . Vaginal Delivery Note: The patient is a 23-year-old 2 para 0101 admitted at 38 and one sevenths weeks by good dating parameters. She is admitted for induction secondary to intrauterine growth restriction with growth at the 5th percentile beginning approximately 35-36 weeks. testing has been reassuring. Her has also been complicated by very poor maternal weight gain. On labor and delivery, all signs are reassuring. She had Pitocin started and underwent artificial rupture of membranes for clear fluid. She had an epidural catheter placed from the onset of the active phase of labor and made fairly quick progress to complete. She then pushed over the course of approximately 10 minutes to a normal spontaneous vaginal delivery of a viable 5 lbs. 8 oz. baby boy with Apgars of 9 at 1 minute and 9 at 5 minutes delivered in the right occiput anterior position. There was nuchal cord 3 which was reduced following delivery the as the loops were tight enough to not ice puller the head. The placenta was delivered spontaneously, intact, and grossly normal with a grossly normal, marginally inserted three-vessel cord. There was a small second-degree midline perineal laceration repaired in standard fashion using 3-0 chromic catgut without difficulty. Estimated blood loss for the case is approximately 200 mL. There are no complications. All sponge, instrument, and needle counts were correct. Both mother and infant are resting comfortably in recovery.
[2018-12-13] MEDS: IBUPROFEN 600 MG TAB PO PRN ×2 (11:58→20:23)
[2018-12-13] MEDS: ACETAMINOPHEN TAB 325 MG TAB PO PRN (17:04)
[2018-12-13] MEDS: SENNOSIDES-DOCUSATE SODIUM 1 EACH TAB PO SCH (20:23)
[2018-12-14] MEDS: IBUPROFEN 600 MG TAB PO PRN (03:00)
--- NOTE | 2018-12-14 08:31 | P.DS ---
Providers Date of admission: 12/13/18 06:40 Expected date of discharge: 12/14/18 Attending physician: Jean Katz Primary care physician: Stated None - Discharge Diagnosis(es) (1) Term Current Visit: No Status: Acute (2) Intrauterine growth retardation in Current Visit: No Status: Acute (3) Normal spontaneous vaginal delivery Current Visit: Yes Status: Acute (4) Perineal laceration during delivery Current Visit: Yes Status: Acute Hospital Course: The patient is a 23-year-old 2 para 0101 admitted at 38 and one sevenths weeks by good dating parameters. She is admitted for induction of labor secondary to intrauterine growth restriction with growth at the 5th percentile found at approximately 35-36 weeks. All testing had been reassuring since that time. Her was also complicated by very poor maternal weight gain. On labor and delivery, all signs were reassuring. She had Pitocin augmentation started and underwent artificial rupture of membranes for clear fluid. She had an epidural catheter placed for analgesia and progressed fairly quickly to complete where after she pushed to a normal spontaneous vaginal delivery of a viable 5 lbs. 8 oz. baby boy with Apgars of 9 at 1 minute and 9 at 5 minutes. Her course was entirely unremarkable with vital signs remaining stable and her temperature was afebrile throughout. She was deemed stable for discharge on day #1 was discharged home to follow-up in the office in 6 weeks' time routinely. Discharge instructions included calling for any significantly increased bleeding or foul-smelling lochia, significantly increased fever or abdominal pain, perineal complaints, breast complaints, or anything else that concerned her. She understood all of her and instructions and agrees to follow up as noted above. Discharge medications included myns-kry-igrspci analgesic pain medications as well as an option to continue her vitamins though she has chosen not to breast- feed. Maternal blood type is A+ and rubella status is immune. Procedures: #1. Pitocin induction #2. Artificial rupture of membranes #3. Epidural analgesia 4. Normal spontaneous vaginal delivery #5. Repair of perineal laceration Patient Condition at Discharge: Good Plan - Discharge Summary New Discharge Prescriptions: No Action Pnv No.95/Ferrous Fum/Folic AC [ Multivitamin Tablet] 1 tab PO DAILY Discharge Medication List Pnv No.95/Ferrous Fum/Folic AC [ Multivitamin Tablet] 1 tab PO DAILY 09/04/16 [History] Follow up Appointment(s)/Referral(s): Jean Katz MD [STAFF PHYSICIAN] - 6 Weeks Discharge Disposition: HOME SELF-CARE
[2018-12-14 08:54] VITALS: BP 99/59; PULSE 64; RESP 17; TEMP 97.6
[2018-12-14] MEDS: ACETAMINOPHEN TAB 325 MG TAB PO PRN ×2 (09:44→13:43)
[2018-12-14] MEDS: SENNOSIDES-DOCUSATE SODIUM 1 EACH TAB PO SCH (11:26)
== END 2018-12-14 16:35 | disposition home or self-care (01) | DRG 807 ==
LOC: 4FBP 06:40
PROVIDERS: ADMIT Obstetrics & Gynecology; ATTEND Obstetrics & Gynecology
PROC: 10E0XZZ Delivery of Products of Conception, External Approach (ICD-10-PCS; principal; 2018-12-13)
PROC: 0KQM0ZZ Repair Perineum Muscle, Open Approach (ICD-10-PCS; 2018-12-13)
PROC: 00HU33Z Insertion of Infusion Device into Spinal Canal, Percutaneous Approach (ICD-10-PCS; 2018-12-13)
PROC: 3E0R3BZ Introduction of Anesthetic Agent into Spinal Canal, Percutaneous Approach (ICD-10-PCS; 2018-12-13)
PROC: 10907ZC Drainage of Amniotic Fluid, Therapeutic from Products of Conception, Via Natural or Artificial Opening (ICD-10-PCS; 2018-12-13)
PROC: 3E033VJ Introduction of Other Hormone into Peripheral Vein, Percutaneous Approach (ICD-10-PCS; 2018-12-13)
DX: O36.5990 Maternal care for other known or suspected poor fetal growth, unspecified trimester, not applicable or unspecified (principal); Z37.0 Single live birth; O99.344 Other mental disorders complicating childbirth; O69.81X0 Labor and delivery complicated by cord around neck, without compression, not applicable or unspecified; O99.52 Diseases of the respiratory system complicating childbirth; F32.9 Major depressive disorder, single episode, unspecified; J45.909 Unspecified asthma, uncomplicated; O99.334 Smoking (tobacco) complicating childbirth; F17.210 Nicotine dependence, cigarettes, uncomplicated; O70.1 Second degree perineal laceration during delivery
CPT/HCPCS: 85025; 86850; 86900; 86901; 88307

== ENCOUNTER 2021-03-04 13:48 | Inpatient (IN) | payer OTHER ==
[2021-03-04] MEDS ORDERED: CITRIC ACID-SODIUM CITRATE 15 ML CUP PO ONE (14:22)
[2021-03-04] MEDS ORDERED: LACTATED RINGERS 1,000 ML IV ONE (14:22)
[2021-03-04] MEDS ORDERED: LIDOCAINE 0.5% (PF) 5 MG/ML (50 ML SDV) SQ PRN (14:38)
[2021-03-04] MEDS ORDERED: METHYLERGONOVINE 0.2 MG/ML 1 ML AMP IM PRN (14:38)
[2021-03-04] MEDS ORDERED: OXYTOCIN 10 UNIT/ML 1 ML VIAL IM PRN (14:38)
[2021-03-04] MEDS ORDERED: TERBUTALINE 1 MG/ML VIAL SQ PRN (14:38)
[2021-03-04] MEDS ORDERED: CARBOPROST TROMETHAMINE 250 MCG/ML 1 ML AMP IM PRN (14:38)
[2021-03-04] MEDS ORDERED: OXYTOCIN 30 UNITS/500 ML NS 30 UNIT in SALINE 1 500ML.BAG IV SCH ×2 (14:45→22:15)
[2021-03-04 14:46] LABS: Basophils # (A) 0.1 k/uL (0-0.2); Basophils % (A) 0 %; Eosinophils # (A) 0.3 k/uL (0-0.7); Eosinophils % (A) 1 %; HCT 27.5 % (34.0-46.0); HGB 9.5 gm/dL (11.4-16.0); Lymphocytes # (A) 2.6 k/uL (1.0-4.8); Lymphocytes % (A) 10 %; MCH 33.3 pg (25.0-35.0); MCHC 34.5 g/dL (31.0-37.0); MCV 96.6 fL (80.0-100.0); Mean Platelet Volume 10.7; Monocytes # (A) 0.9 k/uL (0-1.0); Monocytes % (A) 4 %; Neutrophils # (A) 21.7 k/uL (1.3-7.7); Neutrophils % (A) 84 %; Platelet Count 144 k/uL (150-450); RBC 2.85 m/uL (3.80-5.40); RDW 14.7 % (11.5-15.5); WBC 25.7 k/uL (3.8-10.6)
--- NOTE | 2021-03-04 14:51 | P.HPOB ---
History of Present Illness H&P Date: 03/04/21 Chief Complaint: 34 and one sevenths weeks, intrauterine demise The patient is a 25-year-old 3 para 02/14/2000 admitted at 34 and one sevenths weeks with complaints of minimal movement today and significant abdominal pain and cramping. She denies any ongoing bleeding or any recent trauma. She did report intercourse within the last 24 hours but has no other risk factors. There is no history of she admit to any use of drugs. She has a history of occasional smoking but has reportedly stopped for . During the , she has had no significant complications but was noted to have a circumvallate placenta on 20 week ultrasound for anatomy. Bedside ultrasound performed as I came upon the floor failed to demonstrate a heart rate with no evidence of blood flow and there was some concern for possible retroplacental clot. Obstetrical history: 3 para 02/14/2001 with 133 week delivery secondary to abruption of the placenta. She then had one term delivery and was complicated only by a diagnosis of intrauterine growth restriction. Current statistics are otherwise listed in history present illness. EDC of 04/14/2021 was established by a 22 week ultrasound. Laboratory workup demonstrates a blood type of A+ with a negative antibody screen. Rubella status is immune. Remainder of the laboratory workup was within normal limits. Second trimester Glucola was elevated and then followed by a normal three-hour glucose tolerance test. Group B strep status has not been determined. Gynecologic history: Unremarkable with no apparent history of any infections to include STDs. Review of Systems Review of systems is confined to history of present illness. Past Medical History Past Medical History: Asthma History of Any Multi-Drug Resistant Organisms: None Reported Past Surgical History: Adenoidectomy, Tonsillectomy Past Anesthesia/Blood Transfusion Reactions: No Reported Reaction Past Psychological History: Depression Past Alcohol Use History: None Reported Past Drug Use History: None Reported - Past Family History Mother Family Medical History: No Reported History Medications and Allergies Home Medications Medication Instructions Recorded Confirmed Type Pnv No.95/Ferrous Fum/Folic AC 1 tab PO DAILY 09/04/16 12/13/18 History [ Multivitamin Tablet] Allergies Allergy/AdvReac Type Severity Reaction Status Date / Time No Known Allergies Allergy Verified 12/13/18 06:47 Exam Intake and Output 03/03/21 03/04/21 03/04/21 22:59 06:59 14:59 Other: Weight 50.349 kg In general, this is a well-developed rather thin white female who is emotionally over, secondary to the diagnosis of demise. Her heart has a regular rhythm and rate without murmur. Her lungs are clear to auscultation bilaterally in all tyson. Her abdomen is gravid with a constantly tonic uterine fundus which is otherwise minimally tender to palpation. Her extremities without any cyanosis, clubbing, or edema and are nontender to palpation bilaterally. Digital cervical examination demonstrates to be dilated to a tight 3, 80% effaced, the vertex in presentation at -2 station. Artificial rupture of membranes is carried out demonstrating clear fluid. Assessment and Plan (1) demise Current Visit: Yes Status: Acute Code(s): CSH5890 - SNOMED Code(s): 542048715 (2) 34 weeks gestation of Current Visit: Yes Status: Acute Code(s): Z3A.34 - 34 WEEKS GESTATION OF SNOMED Code(s): 92898668 Plan: The patient is admitted for induction of labor. Laboratories of and sent to check coagulation studies. Every effort will be made to keep the patient comfortable with the process of delivery and will likely include epidural anesthesia and as laboratory studies are available.. Further evaluation will await the delivery of the fetus and the placenta though I feel the diagnosis is likely placental abruption. There are no apparent risk factors at this time aside from a history of previous placental abruption and the finding of circumvallate placenta by ultrasound at 20 weeks.
[2021-03-04] MEDS ORDERED: BUTORPHANOL 1 MG/ML 1 ML VIAL IV PRN (14:54)
[2021-03-04 14:55] LABS: INR 1.1 (<1.2); Prothrombin Time 11.9 sec (9.0-12.0)
[2021-03-04] MEDS: LACTATED RINGERS 1,000 ML IV SCH ×2 (15:00→18:33)
--- NOTE | 2021-03-04 15:11 | US ---
EXAMINATION TYPE: US OB limited DATE OF EXAM: 03/04/2021 COMPARISON: NONE CLINICAL HISTORY: heart tones. Absent heart tones per Dr Katz; Patient is approximat todd 34w,1day. EXAM PERFORMED: OB limited TA US for Heart Rate SURVEY PLACENTA: anterior, heterogeneous and thickened placenta; absent color flow within placenta suggests placental abruption. PRESENTATION: cephalic HEART RATE: absent cardiac activity, no color flow is noted in heart, in head or in abdominal caviti es. Dr Katz observed US at bedside during this exam. IMPRESSION: 1. Intrauterine demise. No cardiac activity, motion or heart rate detected.
[2021-03-04] MEDS ORDERED: HYDROCORTISONE 2.5% RECTAL CREAM 30 GM TUBE RECTAL PRN (22:05)
[2021-03-04] MEDS ORDERED: diphenhydrAMINE 25 MG CAP PO PRN (22:05)
[2021-03-04] MEDS ORDERED: SIMETHICONE 80 MG CHEWABLE PO PRN (22:05)
[2021-03-04] MEDS ORDERED: BENZOCAINE/MENTHOL SPRAY 1 GM/SPRAY AEROSOL TOPICAL PRN (22:05)
[2021-03-04] MEDS ORDERED: HYDROcodone/APAP 5-325MG 1 EACH TAB PO PRN (22:05)
[2021-03-04] MEDS ORDERED: ACETAMINOPHEN TAB 325 MG TAB PO PRN (22:05)
[2021-03-04] MEDS ORDERED: ZOLPIDEM 5 MG TAB PO PRN (22:05)
[2021-03-04] MEDS ORDERED: diphenhydrAMINE 50 MG CAP PO PRN (22:05)
[2021-03-04] MEDS ORDERED: HYDROcodone/APAP 7.5-325MG 1 EACH TAB PO PRN (22:05)
[2021-03-04] MEDS ORDERED: diphenhydrAMINE 50 MG/ML 1 ML VIAL IVP PRN ×2 (22:05)
--- NOTE | 2021-03-04 22:12 | P.PROBDLV ---
Vaginal Delivery Note - . Vaginal Delivery Note: And is a 25-year-old 3 para 1102 admitted at 34 and one sevenths weeks by 20+ week ultrasound with a diagnosis of intrauterine demise. She presented to triage with complaints of decreased movement beginning this morning and significant pain and cramping and was found with the uterus that was extremely tonic. Bedside ultrasound demonstrated no cardiac activity with what appeared to be placental abruption with a moderate amount of clot behind the placenta. The decision was made to proceed immediately with induction. Artificial rupture of membranes is carried out with initially clear fluid which later turned blood-tinged and then somewhat bloody. She was noted to be osbaldo on her own every 1-2 minutes. She initially had Stadol but, once labs have been confirmed to be stable, had an epidural catheter placed for analgesia. She progressed fairly rapidly through the active phase of labor and ultimately presented at complete and +2 station. She pushed over the course of approximately 1-2 contractions to a normal spontaneous vaginal delivery of a nonviable female with weight at this time pending. Brief examination of the demonstrated no outward physical findings. The placenta was delivered almost immediately following the infant as it did not appear to be attached to the wall of the uterus in any way at this time. Immediately following delivery of the placenta, a large clot of approximately 3-400 mL was delivered. Ongoing bleeding following delivery was relatively minimal and uterus remained tonic and well below the umbilicus. There were no lacerations of the perineum, vagina, or cervix. Estimated blood loss for the delivery itself was less than 100 mL with the exception of the large clot that was delivered following the delivery of the placenta. All sponge, instrument, and needle counts were correct. The patient is resting comfortably in recovery and grieving appropriately while holding the infant. The placenta will be sent for pathology to confirm or refute any concerns for chorioamnionitis. Even if found, this could represent a postmortem change. The patient will continue to be observed closely for possible uterine atony and hemoglobin will be followed closely along with vital signs.
[2021-03-04] MEDS: IBUPROFEN 600 MG TAB PO PRN (22:24)
[2021-03-05 06:58] LABS: Basophils % (A) 0 %; Eosinophils # (A) 0.1 k/uL (0-0.7); Eosinophils % (A) 1 %; Lymphocytes # (A) 3.2 k/uL (1.0-4.8); Lymphocytes % (A) 25 %; MCH 33.7 pg (25.0-35.0); MCHC 34.8 g/dL (31.0-37.0); MCV 96.7 fL (80.0-100.0); Mean Platelet Volume 12.6; Monocytes # (A) 0.6 k/uL (0-1.0); Monocytes % (A) 5 %; Neutrophils # (A) 8.7 k/uL (1.3-7.7); Neutrophils % (A) 68 %; RBC 1.74 m/uL (3.80-5.40); RDW 15.1 % (11.5-15.5); WBC 12.8 k/uL (3.8-10.6)
[2021-03-05 07:04] LABS: HCT 16.8 % (34.0-46.0); HGB 5.8 gm/dL (11.4-16.0)
[2021-03-05] MEDS ORDERED: SENNOSIDES-DOCUSATE SODIUM 1 EACH TAB PO SCH (08:00)
[2021-03-05] MEDS: IBUPROFEN 600 MG TAB PO PRN ×2 (08:02→16:04)
[2021-03-05 08:29] VITALS: RESP 18
[2021-03-05 08:43] LABS: Platelet Count 77 k/uL (150-450)
[2021-03-05] MEDS ORDERED: SERTRALINE 50 MG TAB PO SCH (09:00)
--- NOTE | 2021-03-05 09:00 | P.PNOBGVD ---
Subjective - Subjective Interval history: To be coping well emotionally. Denies any symptoms of orthostasis. Patient reports: Reports appetite normal, Reports voiding normally, Reports pain well controlled, Reports ambulating normally : doing well, Objective - Latest Vital Signs Latest vital signs: Vital Signs Temp Pulse Pulse Resp BP BP Pulse Ox 03/05/21 08:37 98.0 F 84 18 89/45 03/05/21 08:30 97.5 F L 78 18 98/60 100 03/05/21 08:27 97.5 F L 78 18 98/60 100 03/05/21 03:43 98.2 F 95 17 94/56 97 03/05/21 00:03 98.1 F 88 17 102/59 03/04/21 23:33 90 16 105/60 03/04/21 23:03 88 17 104/58 03/04/21 22:48 77 16 110/57 03/04/21 22:33 112 H 16 111/61 03/04/21 22:18 118 H 16 112/61 03/04/21 22:03 97.5 F L 109 H 16 109/62 03/04/21 15:21 96.6 F L 54 L 16 101/60 100 03/04/21 14:09 96.6 F L 54 L 16 101/60 100 Intake and Output 03/04/21 03/05/21 03/05/21 22:59 06:59 14:59 Intake Total 167 0 Output Total 250 Balance -83 0 Intake: Intake, IV Titration 167 Amount Oxytocin 30 Units/500 ml 167 Ns 30 unit In Saline 1 500ml.bag @ Per Protocol IV .Q0M [facility] Rx#:[id number] Blood Product 0 Rc As-1 Unit 0 [id number] Output: Urine 150 Estimated Blood Loss 100 Other: # Voids 1 1 Weight 50.349 kg - Exam Extremities: Present: normal Abdomen: Present: normal appearance, soft Uterus: Present: normal, firm (The uterine fundus as tonic and nontender well below the umbilicus.) - Labs Labs: Abnormal Lab Results - Last 24 Hours (Table) 03/04/21 03/04/21 03/05/21 Range/Units 14:38 14:38 06:20 WBC 25.7 H 12.8 H (3.8-10.6) k/uL RBC 2.85 L 1.74 L (3.80-5.40) m/uL Hgb 9.5 L 5.8 L* D (11.4-16.0) gm/dL Hct 27.5 L 16.8 L* (34.0-46.0) % Plt Count 144 L 77 L (150-450) k/uL Neutrophils # 21.7 H 8.7 H (1.3-7.7) k/uL Crossmatch See Detail Assessment and Plan (1) demise Current Visit: Yes Status: Acute Code(s): EAX3413 - SNOMED Code(s): 688875832 (2) 34 weeks gestation of Current Visit: Yes Status: Acute Code(s): Z3A.34 - 34 WEEKS GESTATION OF SNOMED Code(s): 71312519 Plan: Hemoglobin is critically low at 5.8. Despite the fact that the patient is asymptomatic, I will transfuse 1 unit of packed red blood cells to give her some buffer. We will check a hemoglobin approximate 4-6 hours after completion of transfusion. The intention is to discharge her home later this afternoon pending no complications or issues. She does appear to be coping well at this time. Nevertheless, I will start her on Zoloft 50 mg daily.
[2021-03-05] MEDS ORDERED: LIDOCAINE 1% (PF) 10 MG/ML (30 ML SDV) SQ PRN (11:06)
[2021-03-05 15:37] LABS: Basophils % (A) 0 %; Eosinophils # (A) 0.2 k/uL (0-0.7); Eosinophils % (A) 2 %; HCT 23.1 % (34.0-46.0); Lymphocytes # (A) 2.8 k/uL (1.0-4.8); Lymphocytes % (A) 23 %; MCH 32.7 pg (25.0-35.0); MCHC 33.7 g/dL (31.0-37.0); Mean Platelet Volume 12.4; Monocytes # (A) 0.7 k/uL (0-1.0); Monocytes % (A) 5 %; Neutrophils # (A) 8.3 k/uL (1.3-7.7); Neutrophils % (A) 68 %; RBC 2.38 m/uL (3.80-5.40); RDW 15.4 % (11.5-15.5); WBC 12.3 k/uL (3.8-10.6)
[2021-03-05 15:40] LABS: HGB 7.8 gm/dL (11.4-16.0)
[2021-03-05 16:43] LABS: Platelet Count 91 k/uL (150-450)
[2021-03-05 17:11] VITALS: BP 101/63; PULSE 76; TEMP 97.5
--- NOTE | 2021-03-06 09:03 | P.DS ---
Providers Date of admission: 03/04/21 14:31 Expected date of discharge: 03/05/21 Attending physician: Jean Katz Primary care physician: Stated None - Discharge Diagnosis(es) (1) demise Status: Acute (2) 34 weeks gestation of Status: Acute (3) Placental abruption Status: Acute Hospital Course: The patient is a 25-year-old 3 para 02/14/2000 admitted at 34 and one sevenths week through triage. She presented to triage with complaints of decreased movement and significant cramping and contractions. Her appearance was that of an abruption and heart tones could not be located with a toco. Bedside ultrasound confirmed intrauterine demise with no cardiac activity. It also appeared to have a significant amount of retroplacental clot which was consistent with the patient's symptoms in presentation. Digital cervical examination was carried out at which time she was 3 cm dilated and 80% effaced with the vertex in presentation at -2 station. Artificial rupture of membranes was carried out. She then had an epidural catheter placed for analgesia once her labs were noted to be stable. She progressed through the active phase of labor ultimately progressed to complete and +2. She pushed fairly quickly to a normal spontaneous vaginal delivery of a nonviable female . The placenta was delivered immediately following the the delivery of the baby as it was unattached to the uterus. Following delivery of the placenta, a very large, approximate 400 mL clot was delivered. The patient's appearance of this time was very pale. She was otherwise asymptomatic for orthostasis. Hemoglobin and hematocrit several hours after delivery was noted to be 5.8 and 16.8. As a result, she had 1 unit of packed red blood cells transfused which significantly improved her appearance as well as her overall status. Vital signs remained stable throughout despite the low hemoglobin. She was deemed stable for discharge approximate 6-8 hours after transfusion at which time her hemoglobin and hematocrit were noted to be 7.8 and 23.1 respectively. She was discharged home to follow-up in the office in 1-2 weeks for a recheck. She was started on Zoloft 50 mg daily for which she was provided a prescription. She is otherwise return in 6 weeks routinely. Discharge instructions included calling for any significantly increased bleeding or foul-smelling lochia, significantly increased fever abdominal pain, perineal complaints, breast complaints, or anything else that concerned her. She was additionally instructed to have nothing in the vagina for at least 6 weeks time to include intercourse. She understood her instructions and agrees to follow up as noted above. Discharge medications again included Zoloft 50 mg daily with a prescription provided. She is additionally to take iron sulfate 325 mg 1-2 daily for at least a month to help rebuild her hemoglobin and hematocrit. Procedures: #1. Bedside ultrasound #2. Artificial rupture of membranes #3. Epidural analgesia #4. Normal spontaneous vaginal delivery #5. Transfusion 1 unit packed red blood cells Patient Condition at Discharge: Good Plan - Discharge Summary New Discharge Prescriptions: No Action Pnv No.95/Ferrous Fum/Folic AC [ Multivitamin Tablet] 1 tab PO DAILY Discharge Medication List Pnv No.95/Ferrous Fum/Folic AC [ Multivitamin Tablet] 1 tab PO DAILY 09/04/16 [History] Follow up Appointment(s)/Referral(s): Jean Katz MD [STAFF PHYSICIAN] - 2 Weeks (Please call for appointment.) Patient Instructions/Handouts: Sertraline (By mouth) Discharge Disposition: HOME SELF-CARE
== END 2021-03-05 17:50 | disposition home or self-care (01) | DRG 805 ==
LOC: FBPOP 13:48 → 4FBP 14:31
PROVIDERS: ADMIT Obstetrics & Gynecology; ATTEND Obstetrics & Gynecology
PROC: 3E033VJ Introduction of Other Hormone into Peripheral Vein, Percutaneous Approach (ICD-10-PCS; principal; 2021-03-04)
PROC: 10E0XZZ Delivery of Products of Conception, External Approach (ICD-10-PCS; principal; 2021-03-04)
PROC: 10907ZC Drainage of Amniotic Fluid, Therapeutic from Products of Conception, Via Natural or Artificial Opening (ICD-10-PCS; principal; 2021-03-04)
PROC: 30233N1 Transfusion of Nonautologous Red Blood Cells into Peripheral Vein, Percutaneous Approach (ICD-10-PCS; 2021-03-05)
DX: O36.4XX0 Maternal care for intrauterine death, not applicable or unspecified (principal); O45.93 Premature separation of placenta, unspecified, third trimester; Z37.1 Single stillbirth; O72.1 Other immediate postpartum hemorrhage; O90.81 Anemia of the puerperium; D64.9 Anemia, unspecified; F32.A Depression, unspecified; J45.909 Unspecified asthma, uncomplicated; O99.52 Diseases of the respiratory system complicating childbirth; Z3A.34 34 weeks gestation of pregnancy; Z79.899 Other long term (current) drug therapy; O99.344 Other mental disorders complicating childbirth
CPT/HCPCS: 76815; 85025; 85610; 85730; 86850; 86900; 86901; 86920; 99213

== ENCOUNTER 2024-07-26 17:48 | Outpatient (CLI) | payer OTHER ==
[2024-07-26 18:32] LABS: Appearance,Urine Cloudy (Clear); Bilirubin,Urine Negative (Negative); Blood,Urine Negative (Negative); Color,Urine Yellow; Glucose,Urine (UA) Negative (Negative); Ketones,Urine Negative (Negative); Leukocyte Esterase,Urine Large (Negative); Mucus,Urine Many /hpf; Nitrite,Urine Negative (Negative); PH, Urine 6.5 (5.0-8.0); Protein,Urine Trace (Negative); RBC,Urine 2 /hpf (0-5); Specific Gravity,Urine 1.019 (1.001-1.035); Squamous Epithelial Cell,Urine 21 /hpf (0-4); WBC,Urine 22 /hpf (0-5)
[2024-07-26 19:18] LABS: Amphetamine Screen,Urine Not Detected (NotDetected); Barbiturate Screen,Urine Not Detected (NotDetected); Benzodiazepines Screen,Urine Not Detected (NotDetected); Cocaine Screen,Urine Not Detected (NotDetected); Methadone Screen, Urine Not Detected (NotDetected); Opiate Screen,Urine Not Detected (NotDetected); Oxycodone Screen, Urine Not Detected (NotDetected); Phencyclidine Screen,Urine Not Detected (NotDetected); Tricyclic Antidepressant,Urine Not Detected (NotDetected); Urn Cannabinoid Scrn Not Detected (NotDetected)
--- NOTE | 2024-07-26 19:26 | US ---
EXAMINATION TYPE: US OB anatomy transabd DATE OF EXAM: 07/26/2024 COMPARISON: NONE CLINICAL INDICATION: Female, 28 years old with history of dating and viability,; patient states no pr enatal care. no idea how far along. pain hx placental abruption TECHNIQUE: Transabdominal (TA) with grayscale imaging of single gestation. FINDINGS: ANATOMY LIMITED DUE TO AGE AND SHADOWING EXAM MEASUREMENTS: GESTATIONAL AGE / DATING Physician Established: Not established yet Dates by LMP: Unknown Dates by First Scan no previous Dates by Current Scan for: (36 weeks/5 days) EDC: 08/18/24 SURVEY IUP: Single PLACENTA: anterior/ fundal PREVIA: no previa . There are multiple anechoic areas within, largest measuring 2.5 x 0.7 x 1.1cm. CHERELLE: 12.46 cm Normal CERVICAL LENGTH (transabdominal: norm > 3.0cm): unable to visualize due to shadowing from head cm BIOMETRY PRESENTATION: Vertex LIE: Oblique BPD: 9.04 cm 36 weeks / 5 days HC: 33.02 cm 37 weeks / 5 days AC: 33.22 cm 37 weeks / 1 days FL: 6.86 cm 35 weeks / 2 days ESTIMATED WEIGHT IN GRAMS: 2997 grams ESTIMATED WEIGHT IN LBS/OZ: 6 lbs. 10 oz. WEIGHT PERCENTAGE BASED ON ESTABLISHED DATE: NA % HC/AC: 0.99 FL/AC: 21% HEART RATE: 133 bpm RHYTHM: Normal ANATOMY SEEN (within normal limits): Four Chamber Heart Outflow tracts: RVOT Stomach Situs Kidneys (bilateral) Bladder Cord Insert Three Vessel Cord Longitudinal Spine Arms (unable to view second arm due to shadowing and age/ position) Legs (bilateral) Profile ANATOMY SEEN (does not appear within normal limits): ANATOMY NOT SEEN: * Lateral Vent * Cisterna Magna * Nuchal Fold * Cerebellum Choroid Plexus Midline Falx Cavus Septi Pellucidi LVOT Nose/Lips Diaphragm TRV spine IMPRESSION: Single live intrauterine gestation, additional information as above. [facility], , 07/26/2024 7:23 PM
[2024-07-26] MEDS: LACTATED RINGERS 1,000 ML BAG IV STA (19:42)
[2024-07-26 19:56] LABS: Basophils # (A) 0.01 10*3/uL (0.00-0.10); Basophils % (A) 0.1 %; Eosinophils # (A) 0.11 10*3/uL (0.04-0.35); Eosinophils % (A) 1.2 %; HCT 28.4 % (37.2-46.3); Lymphocytes # (A) 2.03 10*3/uL (0.90-5.00); Lymphocytes % (A) 22.6 %; MCH 25.4 pg (27.0-32.0); MCHC 31.7 g/dL (32.0-37.0); MCV 80.2 fL (80.0-97.0); Mean Platelet Volume 11.9 fL (9.5-12.2); Monocytes # (A) 0.68 10*3/uL (0.20-1.00); Monocytes % (A) 7.6 %; Neutrophils # (A) 6.08 10*3/uL (1.80-7.70); Neutrophils % (A) 67.6 %; Platelet Count 210 10*3/uL (140-440); RBC 3.54 10*6/uL (4.10-5.20); RDW 15.6 % (11.5-14.5); WBC 8.99 10*3/uL (4.50-10.00)
[2024-07-26 23:57] VITALS: BP 110/65; PULSE 106; RESP 17; TEMP 99
[2024-07-27 02:52] LABS: Hepatitis B Surface Antigen Nonreactive (Nonreactive)
[2024-07-27 03:55] LABS: HIV 2 AB Non-Reactive (Non-Reactive); HIV AB P24 Non-Reactive (Non-Reactive); HIV P24 AG Non-Reactive (Non-Reactive)
[2024-07-30 13:31] LABS: C. trachomatis,PCR Negative (Negative)
[2024-07-30 13:42] LABS: N. gonorrhoeae,PCR Negative (Negative)
--- NOTE | 2024-08-04 15:12 | P.MSEPDOC ---
Presenting Problems - Arrival Data Date of Arrival on Unit: 07/26/24 Time of Arrival on Unit: 17:48 Mode of Transport: Ambulatory - Complaint OB-Reason for Admission/Chief Complaint: Possible Onset of Labor, Pain Comment: pt presents to triage for pelvic pressure, no care, no confirmed pregancy, no idea of LMP and no ultrasound done Medical History - Information : 5 Para: 2 Term: 1 : 1 Abortions: Spontaneous or Elective: 2 Number of Living Children: 2 - Gestational Age Gestational Age by ULISES (wks/days): 36 Weeks and 5 Days - History Complications: No Care Comment: unknown due date Review of Systems - Review of Systems Constitutional: No problems Breast: No problems ENT: No problems Cardiovascular: No problems Respiratory: No problems Gastrointestinal: No problems Genitourinary: No problems Musculoskeletal: No problems Neurological: No problems Skin: No problems Vital Signs - Temperature Temperature: 99.0 F Temperature Source: Temporal Artery Scan - Pulse Right Brachial Pulse Rate: 106 Pulse Assessment Method: Automatic Cuff - Respirations Respiratory Rate: 17 Oxygen Delivery Method: Room Air O2 Sat by Pulse Oximetry: 99 - Blood Pressure Right Arm Blood Pressure: 110/65 Blood Pressure Mean: 80 Medical Screen Scoring - Cervical Exam Dilation (cm): 3 Effacement (%): 70 Station: -2 Membranes: Intact - Uterine Contractions Frequency From (mins): 1 Frequency To (mins): 2 Duration From (seconds): 30 Duration To (seconds): 50 Intensity: Mild Resting: Soft to palpation - Assessment - Baby A Baseline FHR: 135 Heart Rate - NICHD Category: Category I (Normal) NST: Reactive Physician Notification - Notification Comment Comment: pt had ultrasound which gives GA of 36 5/7, cervical exam /-2 with no change, ivf's given, labs obtained, pt discharged home with instructions on kick counts, s/s of labor and to return with any vaginal bleeding and severe abd pain, will attempt to call office to obtain care for la st few weeks of Maternal Triage Index - Maternal Triage Index Presenting for scheduled procedure w/no complaint: No - Stat/Priority 1 Stat Priority 1: No - Urgent/Priority 2 Urgent Priority 2: Yes Provider Notified: Nitza Grant Provider Notified Time: 18:10 Criteria Met for Priority 2: pt presents to triage for pelvic pressure, no care, no confirmed pregancy, no idea of LMP and no ultrasound done Disposition - Disposition OB Disposition: Triage, Discharge to home, Written follow up instructions reviewed Discharge Date: 07/26/24 Discharge Time: 21:25 I agree with the RN Medical Screening Exam: Yes Physician's MSE Comment: I have neither seen nor examined the patient Case reviewed; plan agreed upon as documented in EMR&OBIX.: Yes Diagnosis: RELATED CONDITIONS, UNSPECIFIED, THIRD TRIMESTER
== END 2024-07-26 21:25 | disposition home or self-care (01) ==
LOC: FBPOP 17:48
PROVIDERS: ATTEND Obstetrics & Gynecology
DX: O26.893 Other specified pregnancy related conditions, third trimester (principal); O99.333 Smoking (tobacco) complicating pregnancy, third trimester; F17.200 Nicotine dependence, unspecified, uncomplicated; Z3A.36 36 weeks gestation of pregnancy
CPT/HCPCS: 59025; 96360; 36415; 86900; 86901; 86762; 82947; 85025; 86850; 87340; 81001; 87491; 87591; 86780; 80306; 87081; 87390; 76811; G0463; 99214

== ENCOUNTER 2024-08-11 18:30 | Inpatient (IN) | payer OTHER ==
[2024-08-11] MEDS ORDERED: LIDOCAINE 0.5% (PF) 5 MG/ML (50 ML SDV) SQ PRN (19:28)
[2024-08-11] MEDS ORDERED: miSOPROStoL 200 MCG TAB RECTAL PRN (19:28)
[2024-08-11] MEDS ORDERED: TERBUTALINE 1 MG/ML VIAL SQ PRN (19:28)
[2024-08-11] MEDS ORDERED: TRANEXAMIC 1,000 MG/100ML-NACL 1,000 MG in EMPTY BAG 1 BAG IV PRN (19:28)
[2024-08-11] MEDS ORDERED: OXYTOCIN 10 UNIT/ML 1 ML VIAL IM PRN (19:28)
[2024-08-11] MEDS ORDERED: METHYLERGONOVINE 0.2 MG/ML 1 ML AMP IM PRN (19:28)
[2024-08-11] MEDS ORDERED: miSOPROStoL 200 MCG TAB PO PRN (19:28)
[2024-08-11] MEDS ORDERED: CARBOPROST TROMETHAMINE 250 MCG/ML 1 ML AMP IM PRN (19:28)
[2024-08-11] MEDS: LACTATED RINGERS 1,000 ML IV SCH (19:35)
--- NOTE | 2024-08-11 19:52 | P.HPOB ---
History of Present Illness H&P Date: 08/11/24 Chief Complaint: IUP at 39-0/7 weeks, active labor This is a 28-year-old -2-0-2 that presents to labor and delivery with complaints of regular contractions. Patient states she was noted to be 4 cm in the office. Patient does have a history of a delivery and states this is the longest she has gone in . Patient denies loss of fluid. She has noted some pink spotting. She did begin care at 38 weeks and 2 days. Blood type of a positive, group beta strep culture negative on 07/26. 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 4 para 1202 1 full-term vaginal delivery 1 vaginal delivery 34-week IUFD with abruption Review of Systems Constitutional: Denies chills, Denies fatigue, Denies fever Ears, nose, mouth and throat: Denies headache Cardiovascular: Reports leg edema Respiratory: Denies dyspnea Gastrointestinal: Denies constipation, Denies diarrhea, Denies nausea, Denies vomiting Genitourinary: Reports Past Medical History Past Medical History: Asthma Additional Past Medical History / Comment(s): miscarriage at 7 weeks History of Any Multi-Drug Resistant Organisms: None Reported Past Surgical History: Adenoidectomy, Tonsillectomy Past Anesthesia/Blood Transfusion Reactions: No Reported Reaction Smoking Status: Current every day smoker - Past Family History Mother Family Medical History: No Reported History Medications and Allergies Allergies Allergy/AdvReac Type Severity Reaction Status Date / Time No Known Allergies Allergy Verified 07/26/24 17:55 Exam Osteopathic Statement: *. No significant issues noted on an osteopathic structural exam other than those noted in the History and Physical/Consult. Intake and Output 08/11/24 08/11/24 08/11/24 06:59 14:59 22:59 Other: Weight 45.813 kg Targeted physical exam is performed this date in general is well-nourished well- developed female in no acute distress, breathing is nonlabored, heart is regular in rhythm, abdomen is gravid, cervical exam is 6/80/-1 station bulging bag of water, per RN. heart tones are noted to be category 1 and she is osbaldo regularly with uterine irritability Assessment and Plan (1) Active labor Current Visit: Yes Status: Acute Code(s): [id number] - SNOMED Code(s): 069010223 (2) Late care Current Visit: Yes Status: Acute Code(s): O09.30 - SUPRVSN OF PREG W INSUFFICIENT ANTENAT CARE, UNSP TRIMESTER SNOMED Code(s): 695496012 Plan: Admit to labor and delivery Patient desires epidural, anesthesia will be notified Anticipate spontaneous vaginal delivery
[2024-08-11 19:54] LABS: Basophils # (A) 0.02 10*3/uL (0.00-0.10); Basophils % (A) 0.2 %; Eosinophils # (A) 0.07 10*3/uL (0.04-0.35); Eosinophils % (A) 0.7 %; HCT 25.8 % (37.2-46.3); HGB 8.1 g/dL (12.0-15.0); Immature Platelet Fraction 15.8 % (1.1-6.1); Lymphocytes # (A) 2.38 10*3/uL (0.90-5.00); MCH 24.3 pg (27.0-32.0); MCHC 31.4 g/dL (32.0-37.0); MCV 77.2 fL (80.0-97.0); Monocytes # (A) 0.71 10*3/uL (0.20-1.00); Monocytes % (A) 6.9 %; Neutrophils # (A) 7.11 10*3/uL (1.80-7.70); Neutrophils % (A) 68.7 %; Platelet Count 162 10*3/uL (140-440); RBC 3.34 10*6/uL (4.10-5.20); WBC 10.34 10*3/uL (4.50-10.00)
[2024-08-11] MEDS ORDERED: fentaNYL (PF) 50 MCG/ML 5 ML AMP ONE (20:15)
[2024-08-11] MEDS ORDERED: ROPIVACAINE 5 MG/ML 30 ML VIAL ONE (20:15)
[2024-08-11] MEDS ORDERED: SODIUM CHLORIDE 0.9% 250 ML BAG ONE (20:15)
[2024-08-11] MEDS: OXYTOCIN 30 UNITS/500 ML NS 30 UNIT in SALINE 1 500ML.BAG IV SCH (21:48)
[2024-08-11 22:06] LABS: Amphetamine Screen,Urine Not Detected (NotDetected); Barbiturate Screen,Urine Not Detected (NotDetected); Benzodiazepines Screen,Urine Not Detected (NotDetected); Cocaine Screen,Urine Not Detected (NotDetected); Methadone Screen, Urine Not Detected (NotDetected); Opiate Screen,Urine Not Detected (NotDetected); Oxycodone Screen, Urine Not Detected (NotDetected); Phencyclidine Screen,Urine Not Detected (NotDetected); Tricyclic Antidepressant,Urine Not Detected (NotDetected); Urn Cannabinoid Scrn Not Detected (NotDetected)
[2024-08-11] MEDS ORDERED: diphenhydrAMINE 25 MG CAP PO PRN (23:09)
[2024-08-11] MEDS ORDERED: BENZOCAINE/MENTHOL SPRAY 1 GM/SPRAY AEROSOL TOPICAL PRN (23:09)
[2024-08-11] MEDS ORDERED: diphenhydrAMINE 50 MG CAP PO PRN (23:09)
[2024-08-11] MEDS ORDERED: LANOLIN CREAM 1 GM TUBE TOPICAL PRN (23:09)
[2024-08-11] MEDS ORDERED: SIMETHICONE 80 MG CHEWABLE PO PRN (23:09)
[2024-08-11] MEDS ORDERED: HYDROCORTISONE 2.5% RECTAL CREAM 30 GM TUBE RECTAL PRN (23:09)
[2024-08-11] MEDS ORDERED: diphenhydrAMINE 50 MG/ML 1 ML VIAL IVP PRN ×2 (23:09)
[2024-08-11] MEDS ORDERED: ZOLPIDEM 5 MG TAB PO PRN (23:09)
--- NOTE | 2024-08-11 23:09 | P.PROBDLV ---
Vaginal Delivery Note - . Vaginal Delivery Note: 28-year-old para 1202 that presents to labor and delivery in active labor. Patient is admitted and amniotomy is performed with meconium stained fluid appreciated. Patient did request epidural for analgesia. Epidural was placed without difficulty by the anesthesia department. Patients contractions did space after the epidural therefore Pitocin augmentation of labor was begun. Patient made good progress toward complete dilation, once completely dilated she began pushing and had a normal spontaneous vaginal delivery of a viable female infant at 2253, weight of 6 pounds 15 ounces, Apgars of 9 and 9 at 1 and 5 minutes respectively. After 2-minute delay the umbilical cord was doubly clamped and cut. Placenta was delivered spontaneously intact with a three- vessel cord being noted. Uterus was noted to be firm and below the umbilicus. On inspection of patient's vaginal vault no lacerations were appreciated. All counts were noted to correct x 2 at the end of the delivery. Red rubber catheter was used to drain the bladder of approximately 200 cc of clear yellow urine. Estimated blood loss 100 cc Patient and tolerated delivery well and are resting comfortably
[2024-08-12] MEDS: IBUPROFEN 800 MG TAB PO SCH (00:59)
[2024-08-12] MEDS: ACETAMINOPHEN TAB 500 MG TAB PO SCH (04:17)
[2024-08-12 07:14] LABS: Basophils # (A) 0.04 10*3/uL (0.00-0.10); Basophils % (A) 0.3 %; Eosinophils # (A) 0.15 10*3/uL (0.04-0.35); Eosinophils % (A) 1.3 %; HCT 23.6 % (37.2-46.3); HGB 7.2 g/dL (12.0-15.0); Immature Platelet Fraction 14.8 % (1.1-6.1); Lymphocytes # (A) 3.06 10*3/uL (0.90-5.00); Lymphocytes % (A) 26.5 %; MCH 24.1 pg (27.0-32.0); MCHC 30.5 g/dL (32.0-37.0); MCV 78.9 fL (80.0-97.0); Mean Platelet Volume 11.3 fL (9.5-12.2); Monocytes # (A) 0.76 10*3/uL (0.20-1.00); Monocytes % (A) 6.6 %; Neutrophils # (A) 7.47 10*3/uL (1.80-7.70); Neutrophils % (A) 64.8 %; Platelet Count 144 10*3/uL (140-440); RBC 2.99 10*6/uL (4.10-5.20); WBC 11.54 10*3/uL (4.50-10.00)
[2024-08-12] MEDS: SENNOSIDES-DOCUSATE SODIUM 1 EACH TAB PO SCH (09:35)
--- NOTE | 2024-08-12 11:08 | P.PNOBGVD ---
Subjective - Subjective Principal diagnosis: day #1, spontaneous vaginal delivery Interval history: Patient is doing well . She is ambulating and voiding without difficulty. Her lochia is moderate. She denies concerns and states she is feeling well Patient reports: Reports appetite normal, Reports voiding normally, Reports pain well controlled, Reports ambulating normally [place]: doing well Objective - Latest Vital Signs Latest vital signs: Vital Signs Temp Pulse Resp BP Pulse Ox 08/12/24 08:00 97.8 F 56 L 15 104/71 100 08/12/24 03:15 97.7 F 68 16 115/65 08/12/24 01:15 98.4 F 68 16 123/77 08/12/24 01:00 77 16 117/77 08/12/24 00:45 81 16 109/63 08/12/24 00:30 77 16 117/68 08/12/24 00:15 73 16 121/70 08/12/24 00:00 74 16 116/69 08/11/24 23:45 78 16 118/70 08/11/24 23:30 77 16 131/74 08/11/24 23:15 98.5 F 84 16 125/78 08/11/24 20:03 98.3 F 87 16 128/86 100 Intake and Output 08/11/24 08/12/24 08/12/24 22:59 06:59 14:59 Intake Total 2.233 167 Output Total 100 100 Balance -97.767 67 Intake: Intake, IV Titration 2.233 167 Amount Oxytocin 30 Units/500 ml 2.233 167 Ns 30 unit In Saline 1 500ml.bag @ Per Protocol IV .Q0M [facility] Rx#:[id number] Output: Urine 100 Output, Quantitative 100 Blood Loss Other: # Voids 1 1 Weight 45.813 kg - Exam Extremities: Present: normal, edema Abdomen: Present: normal appearance, soft Uterus: Present: normal, firm - Labs Labs: Abnormal Lab Results - Last 24 Hours (Table) 08/11/24 08/12/24 Range/Units 19:38 06:48 WBC 10.34 H 11.54 H (4.50-10.00) 10*3/uL RBC 3.34 L 2.99 L (4.10-5.20) 10*6/uL Hgb 8.1 L 7.2 L (12.0-15.0) g/dL Hct 25.8 L 23.6 L (37.2-46.3) % MCV 77.2 L 78.9 L (80.0-97.0) fL MCH 24.3 L 24.1 L (27.0-32.0) pg MCHC 31.4 L 30.5 L (32.0-37.0) g/dL Immature Gran # 0.05 H 0.06 H (0.00-0.04) 10*3/uL Immature Plt Fraction 15.8 H 14.8 H (1.1-6.1) % Assessment and Plan (1) Active labor Current Visit: Yes Status: Acute Code(s): ZOE7240 - SNOMED Code(s): 293006487 (2) Late care Current Visit: Yes Status: Acute Code(s): O09.30 - SUPRVSN OF PREG W INSUFFICIENT ANTENAT CARE, UNSP TRIMESTER SNOMED Code(s): 778902846 (3) Normal spontaneous vaginal delivery Current Visit: No Status: Acute Code(s): O80 - ENCOUNTER FOR FULL-TERM UNCOMPLICATED DELIVERY SNOMED Code(s): 92363340 Plan: Patient is doing well . Plan to continue routine care and anticipate discharge home tomorrow
[2024-08-12 17:18] VITALS: RESP 16
[2024-08-13 08:09] VITALS: BP 110/71; PULSE 64; TEMP 97.8
--- NOTE | 2024-08-13 08:35 | P.DS ---
Providers Date of admission: 08/11/24 19:38 Expected date of discharge: 08/13/24 Attending physician: Nitza Grant MD Primary care physician: Nitza Grant MD Hospital Course: Ms. Cerda is a 28 year old PPD#2 s/p without complications. Please see delivery note for more information. The patient is doing well this morning and had no acute events overnight. She has no complaints this morning. She reports minimal lochia, passing flatus, voiding without difficulty, ambulating, and eating/drinking without nausea or vomiting. doing well at bedside. She denies chest pain, shortness of breathing, fevers, or chills overnight. She denies pain or swelling in the legs. restrictions are reviewed with the patient including pelvic rest for 6 weeks. The patient is encouraged to call the office if she experiences any heavy bleeding, foul- smelling discharge, breast complaints, or any if she has any other concerns. She will follow up in the office with in 6 weeks for exam. All questions are answered. Patient Condition at Discharge: Good Plan - Discharge Summary Follow up Appointment(s)/Referral(s): Nitza Grant MD [Primary Care Provider] - 6 Weeks Activity/Diet/Wound Care/Special Instructions: Instructions 1. Do not begin any exercise program for 3 weeks. 2. Do not resume sexual relations for 6 weeks or longer if uncomfortable. 3. You may take tub baths or showers at any time. 4. You may use tampons if desired after 6 weeks. 5. Keep any areas repaired with stitches clean and dry. 6. If you are not nursing, wear a good fitting, supportive bra during the day and limit fluid intake for at least 1 week to prevent breast engorgement. 7. Call the office, , within the next week to make appointment for your 6 week checkup if it has not already been made. 8. Report any of the following occurrences to the doctor promptly: a. Heavy, excessive bleeding b. Chills, fever c. Burning or frequency of urination d. Pain or redness and breasts if nursing e. Increasing pain or swelling of vulva (stitches). In addition to the above instructions, the following additional should be followed: 1. No heavy lifting or straining (exercising) until after 6 week checkup. 2. Keep abdominal incision clean and dry: You may wear a dressing if more comfortable. 3. Make office appointment for 2 weeks after delivery date. Discharge Disposition: HOME SELF-CARE
== END 2024-08-13 15:10 | disposition home or self-care (01) | DRG 560 ==
LOC: FBPOP 18:30 → 4FBP 19:38
PROVIDERS: ADMIT Obstetrics & Gynecology Obstetrics; ATTEND Obstetrics & Gynecology
PROC: 10E0XZZ Delivery of Products of Conception, External Approach (ICD-10-PCS; principal; 2024-08-11)
PROC: 10907ZC Drainage of Amniotic Fluid, Therapeutic from Products of Conception, Via Natural or Artificial Opening (ICD-10-PCS; principal; 2024-08-11)
DX: O77.0 Labor and delivery complicated by meconium in amniotic fluid (principal); O99.334 Smoking (tobacco) complicating childbirth; F17.200 Nicotine dependence, unspecified, uncomplicated; Z87.51 Personal history of pre-term labor; Z28.310 Unvaccinated for COVID-19; Z28.21 Immunization not carried out because of patient refusal; Z3A.39 39 weeks gestation of pregnancy; Z37.0 Single live birth
CPT/HCPCS: 80306; 85025; 86850; 86900; 86901